=== PATIENT | female | born 1970 | race Two or more races ===

== ENCOUNTER 2020-04-29 17:38 | Outpatient (REF) | payer MEDICAID, SELFPAY ==
--- NOTE | 2020-04-29 | XR_ITS ---
EXAMINATION: XR SHOULDER, RIGHT CLINICAL INFORMATION: Right shoulder pain COMPARISON: 05/28/2014 TECHNIQUE: Three views of the right shoulder. FINDINGS: Normal alignment. No fracture. There is a small calcification at the deltoid insertion onto the acromion may be degenerative or related to a previous injury. This is a new finding although it is of doubtful clinical significance. Minimal acromioclavicular osteoarthritis. The glenohumeral joint is unremarkable. IMPRESSION: Minimal acromioclavicular osteoarthritis.
[2020-04-29 18:52] LABS: Creatinine Urine 225.12 mg/dL; Microalbum/Creatinine Ratio Ur 8.8 ug/mg cr
[2020-04-29 18:54] LABS: Anion Gap 12 (12-20); Blood Urea Nitrogen 17 mg/dL (9-16); Calcium 9.2 mg/dL (8.4-10.2); Carbon Dioxide 29 mmol/L (22-29); Chloride 104 mmol/L (96-108); Cholesterol 200 mg/dL; Estimated Glomerular Filt Rate > 60; Glucose Random 144 mg/dL (60-115); HDL Cholesterol 35 mg/dL; LDL Cholesterol Calculated 124 mg/dl; Sodium 141 mmol/L (135-145); Triglycerides 206 mg/dL
[2020-04-30 06:17] LABS: Estimated Average Glucose 166 mg/dL; Hemoglobin A1c % 7.4 %
== END 2020-04-29 17:39 | disposition home or self-care (01) ==
LOC: HO.LAB 17:38
PROVIDERS: PCP Internal Medicine; Visit Provider Internal Medicine
DX: E11.9 Type 2 diabetes mellitus without complications (principal)
CPT/HCPCS: 73030; 80048; 80061; 82043; 83036

== ENCOUNTER 2020-09-25 14:00 | Outpatient (RCR) | payer MEDICAID, SELFPAY ==
--- NOTE | 2020-09-10 16:16 | MHC.PT.EP ---
[facility] [place] Office [place] [facility] [place] Office [address] [phone] F: [phone] F: [phone] F: [phone] F: [phone] Physical Therapy Plan of Care Date of Evaluation: 09/10/20 Date of Surgery: Diagnosis: Rt SHOULDER AND Rt ELBOW PAIN Assessment: 50 YO FEMALE REF TO PT W RIGHT SHOULDER, ELBOW, AND NECK PAIN- SHE RESIDES ALONE AND HER SON ASSISTS HER W SHOPPING AND DRIVING DEPENDING ON HER PAIN LEVEL. SHE IS RIGHT HAND DOMINANT-AND WAS INDEP W ADLs PRIOR TO ONSET OF SXS. OBJECTIVE FINDINGS INCLUDE: DECR AROM Rt SH/ELBOW/ CERVICAL AREAS, DECR POST RC/ SCAP STRENGTH, (+)RADIC SXS INTO RIGHT FINGERS, AND SIGNIF TTP RIGHT UPPER TRAP/ ANT GH, FOREARM WAD. SHE HAS (+) Rt SH IMPINGEMENT SIGN AND (+) Rt LAT EPICONDYLITIS SXS AND SOME SXS W CERV ORIGIN/ POSTURAL SYNDROME. FUNCTIONALLY, Pt'S PAIN IMPACTS HER OVERALL ADLs/ SLEEP, AND FUNCTIONAL MOBILITY JOHNNIE. SHE WOULD BENEFIT FROM PT TO ADDRESS PAIN MGMT, SELF SX TECHN, DEV A HEP TO ADDRESS ROM AND STRENGTH, AND POSTURE[facility]. Frequency and Duration: The patient will be seen 2x WK x 4 WKS Short Term Goals: Pt'S PAIN DECR TO 2-3/10 AND Rt HAND RADIC SXS DECR BY 75% IN 2 WKS Pt DEMON INDEP SELF CORRECT POSTURE AND PROPER BODY MECH W 3:3 SIM ADLs IN 2 WKS [place] Goals: Pt INDEP W HEP FOR STRENGTH AND ROM IN 4 WKS Pt RESUME REG ADLs EVIDENT W IMPROVED SPADI SCORE BY 20 POINTS ( AT [id number]) IN 4 WKS Treatment Plan: Modalities to reduce pain, spasms and effusion. Manual therapy to restore motion and function. Therapeutic exercise to improve strength and flexibility. Neuromuscular re-education for posture and balance. Therapeutic activities to return to functional activities of daily living. Electronically signed by: Jeane Harp, PT Please sign and return to therapist. Thank you for your referral.
== END 2020-10-09 16:14 | disposition other institution (70) ==
LOC: HO.PTCHIC 14:00
PROVIDERS: PCP Internal Medicine; Visit Provider Internal Medicine
DX: M25.511 Pain in right shoulder (principal)
CPT/HCPCS: 97014; 97035; 97110; 97140; 97162; 97530

== ENCOUNTER 2021-05-14 14:24 | Outpatient (REF) | payer MEDICAID, SELFPAY ==
--- NOTE | ~2021-05-14 | MM_ITS ---
EXAMINATION: MM SCREENING DIGITAL BREAST TOMOSYNTHESIS, BILATERAL CLINICAL INFORMATION: Screening. Asymptomatic. The lifetime risk of breast cancer based on the Tyrer-Cuzick Model is 6%. COMPARISON: Mammography: 03/17/2018, 08/05/2016, 01/01/2015 TECHNIQUE: Digital breast tomosynthesis is performed in both the craniocaudal and mediolateral oblique views along with computer-aided detection (CAD). Synthesized 2D images are generated from the tomosynthesis. Additional right MLO view is provided. FINDINGS: The breasts are almost entirely fatty (ACR BI-RADS breast composition Category a). Background stromal and some fibroglandular densities are stable. There is no developing density. No abnormal calcifications. The axilla and skin contours are unremarkable. MM/MM tomosynthesis screening BI IMPRESSION: No mammographic evidence of malignancy. ASSESSMENT: BI-RADS 1: Negative RECOMMENDATION: Routine annual mammography screening. This patient's information was entered into a reminder system with a target due date for their next mammogram.
== END 2021-05-14 14:25 | disposition home or self-care (01) ==
LOC: HO.MAMMO 14:24
PROVIDERS: Visit Provider Internal Medicine
DX: Z12.31 Encounter for screening mammogram for malignant neoplasm of breast (principal)
CPT/HCPCS: 77063; 77067

== ENCOUNTER 2021-07-22 10:05 | Outpatient (REF) | payer MEDICAID, SELFPAY ==
--- NOTE | 2021-07-22 | EMG_ITS ---
This is a 51-year-old woman with a 6 month history of bilateral upper extremity pain and numbness in the hands with the left being worse than the right. PHYSICAL EXAMINATION: On examination, she is alert, oriented with normal intellectual functions. She has mild weakness in the abductor pollicis brevis. No Tinel or Phalen sign. IMPRESSION: Carpal tunnel syndrome. Nerve conduction EMG study: Moderately severe carpal tunnel syndrome bilaterally, slightly worse on the left. Normal EMG of the left C5-T1 innervated muscles. MD DWAINE Galvin/KARRIE / [id number]
== END 2021-07-22 10:06 | disposition home or self-care (01) ==
LOC: HO.NEURO 10:05
PROVIDERS: Visit Provider Internal Medicine
DX: G56.01 Carpal tunnel syndrome, right upper limb (principal); M79.621 Pain in right upper arm
CPT/HCPCS: 95885; 95913

== ENCOUNTER 2021-10-06 12:38 | Outpatient (RCR) | payer MEDICAID, SELFPAY ==
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
--- NOTE | 2021-10-14 14:55 | MHC.OT.DC ---
[address] [phone] F: [phone] Occupational Therapy Discharge Note Provider: Dr. Mccollum Diagnosis: B/L CARPAL TUNNEL SYNDROME Date of Evaluation: 10/06/21 Date of Discharge: 10/14/21 Treatments to Date: 1 Cancellations to Date: 5 No Shows to Date: 2 Discharge Status: Visit Non-compliance Discharge Summary: Pt was seen for initial eval on 10/06/21 for B/L carpal tunnel syndrome, also found to have multiple trigger fingers. She was educated on basic conservative treatment on carpal tunnel syndrome with nighttime orthosis wear and given figure eight orthosis for trigger digits and advised to limit active flexion of hands. She has since missed 2 visits, so we will d/c per [facility] no-show policy. Electronically Signed By: Amanda Montana OT/s Reviewed/agree with student documentation: Yes Therapist: Paige Rodríguez, OTR/L, CHT Please Sign and return to therapist, thank you for your referral.
== END 2021-10-14 14:56 | disposition home or self-care (01) ==
LOC: HO.OT 12:38
PROVIDERS: PCP Internal Medicine; Visit Provider Internal Medicine
DX: G56.01 Carpal tunnel syndrome, right upper limb (principal)
CPT/HCPCS: 97110; 97166; 97760

== ENCOUNTER 2022-02-20 15:37 | Emergency (ER) | payer MEDICAID, SELFPAY ==
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
[2022-02-20 16:03] VITALS: BP 157/92; PULSE 77; RESP 18; TEMP 36.7; O2SAT 96; BMI 33.6
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
== END 2022-02-20 21:19 | disposition home or self-care (01) ==
PROVIDERS: Emergency Provider Emergency Medicine; PCP Internal Medicine
DX: S13.4XXA Sprain of ligaments of cervical spine, initial encounter (principal); S06.0X0A Concussion without loss of consciousness, initial encounter; V43.52XA Car driver injured in collision with other type car in traffic accident, initial encounter; M79.602 Pain in left arm; M25.512 Pain in left shoulder; Y93.89 Activity, other specified; Y92.410 Unspecified street and highway as the place of occurrence of the external cause; Y99.9 Unspecified external cause status
CPT/HCPCS: 73030; 73060; 73070; 99282; 99283

== ENCOUNTER 2022-08-25 15:42 | Outpatient (REF) | payer MEDICAID, SELFPAY ==
--- NOTE | ~2022-08-25 | XR_ITS ---
EXAMINATION: XR knee RT 3V CLINICAL INFORMATION: Posttraumatic dislocation of the knee. COMPARISON: Knee radiographs 07/03/2014 TECHNIQUE: 3 views of the knee FINDINGS: No acute fracture or dislocation. Mild tricompartmental degenerative changes with minimal degenerative spurring and borderline loss of medial compartment joint space. No joint effusion. Soft tissues are unremarkable. XR/XR knee RT 3V IMPRESSION: * No acute osseous abnormality. Mild degenerative changes of the knee.
== END 2022-08-25 15:43 | disposition home or self-care (01) ==
LOC: HO.XRAY 15:42
PROVIDERS: PCP Internal Medicine; Visit Provider Internal Medicine
DX: S83.104A Unspecified dislocation of right knee, initial encounter (principal); X58.XXXA Exposure to other specified factors, initial encounter; Y93.9 Activity, unspecified; Y92.9 Unspecified place or not applicable; Y99.9 Unspecified external cause status
CPT/HCPCS: 73562

== ENCOUNTER 2023-01-06 18:41 | Outpatient (REF) | payer MEDICAID, SELFPAY ==
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
== END 2023-01-06 18:42 | disposition home or self-care (01) ==
LOC: HO.MRI 18:41
PROVIDERS: Visit Provider Internal Medicine
DX: M17.11 Unilateral primary osteoarthritis, right knee (principal)
CPT/HCPCS: 73721

== ENCOUNTER 2023-08-05 18:10 | Outpatient (REF) | payer MEDICAID, SELFPAY | END 2023-08-05 18:11 | disposition home or self-care (01) | LOC: HO.HHCLNP 18:10 | PROVIDERS: Visit Provider Student in an Organized Health Care Education/Training Program | DX: R30.9 Painful micturition, unspecified (principal) | CPT/HCPCS: 87086; 87147 ==

== ENCOUNTER 2024-01-10 12:42 | Outpatient (REF) | payer MEDICAID, SELFPAY ==
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
== END 2024-01-10 12:43 | disposition home or self-care (01) ==
LOC: HO.US 12:42
PROVIDERS: PCP Internal Medicine; Visit Provider Internal Medicine
DX: R31.21 Asymptomatic microscopic hematuria (principal)
CPT/HCPCS: 76775

== ENCOUNTER 2024-04-12 17:07 | Outpatient (REF) | payer MEDICAID, SELFPAY ==
[2024-04-13 12:14] LABS: CT PCR NOT DETECTED (Not Detect.); NG PCR NOT DETECTED (Not Detect.)
[2024-04-13 14:22] LABS: Bacterial Vaginosis PCR NEGATIVE (Negative); Candida Group PCR DETECTED (Not Detect); Candida glab krusei PCR NOT DETECTED (Not Detect); Trichomonas vaginalis PCR NOT DETECTED (Not Detect)
== END 2024-04-12 17:08 | disposition home or self-care (01) ==
LOC: HO.HHCLNP 17:07
PROVIDERS: Visit Provider Emergency Medicine
DX: R21 Rash and other nonspecific skin eruption (principal); R39.9 Unspecified symptoms and signs involving the genitourinary system
CPT/HCPCS: 0352U; 87086; 87147; 87255; 87491; 87591

== ENCOUNTER 2024-05-23 14:12 | Outpatient (AMB) | payer MEDICAID, SELFPAY ==
--- NOTE | 2024-05-23 14:16 | MHC.OFFVIS ---
Intake Visit Reasons: nephrolithiasis Intake Note: New Patient presents for initial visit for nephrolithiasis Urology Medications: none Blood Thinner:none Recreation Therapy Teacher Required: No Accompanied by: Unknown Allergies acetaminophen [Excedrin Migraine] Allergy (Unknown, Verified 05/23/24 14:48) Hives aspirin [ASPIRIN] Allergy (Unknown, Verified 05/23/24 14:48) HIVES caffeine [Excedrin Migraine] Allergy (Unknown, Verified 05/23/24 14:48) Hives ibuprofen [IBUPROFEN] Allergy (Unknown, Verified 05/23/24 14:48) HIVES penicillin V Allergy (Unknown, Verified 05/23/24 14:48) Hives Penicillins [PENICILLINS] Allergy (Unknown, Verified 05/23/24 14:48) HIVES Motrin Allergy (Unknown, Uncoded 05/23/24 14:48) Hives Medication List - Last Reconciled 05/23/24 by REHANA Pinto acetaminophen 1,000 mg PO Q6H PRN albuterol sulfate 90 mcg/actuation (Ventolin HFA) 2 puffs inhalation Q4-6H PRN blood sugar diagnostic (FreeStyle Lite Strips) As directed clotrimazole 1% appl topical BID cyclobenzaprine 10 mg PO BEDTIME PRN ergocalciferol (vitamin D2) 1,250 mcg PO QWEEK fluticasone propionate 220 mcg/actuation (Flovent HFA) 2 puffs inhalation BID gabapentin 100 mg PO BID hydrochlorothiazide 25 mg PO QAM ketoconazole 2% 1 appl topical BID lancets (TRUEplus Lancets) As directed lidocaine 5% 1 patch topical DAILY PRN losartan 50 mg PO QAM metformin 850 mg PO triamcinolone acetonide 0.1% appl topical BID HPI Comments Details: En is a very pleasant 54-year-old female patient of Dr. Mccollum. She has a past medical history of diabetes, chronic thoracic spine pain, arthritis, thoracic radiculopathy, insomnia, obesity, migraines, lumbar radiculopathy, mixed hyperlipidemia, hypertension, GERD, chronic low-back pain, and asthma. She presents to the office today as a new patient for nephrolithiasis. In discussion with the patient today she reports having had recent renal ultrasound that noted nephrolithiasis at which time urology referral was made for further assessment evaluation. These results reviewed with the patient today. 01/15 renal ultrasound notes bilateral mild caliectasis. Right kidney with no renal calculi. Left kidney with a few tiny echogenic foci that can represent tiny nonobstructive calculi, vascular calcifications, and or artifact. On exam today no CVA tenderness noted bilaterally. Patient with pain upon palpation of low-back/lumbar. She reports pain worsens with movement and relieves with rest. She otherwise denies any bothersome urinary issues. She denies urinary urgency, urinary frequency, incontinence, nocturia, hematuria, dysuria, foul smelling urine, changes to urinary stream, flank pain, fever, and or chills. She is happy with her current voiding parameters. In office urinalysis results reviewed with the patient today. We discussed at length potential causes of potential noted nephrolithiasis. Discussed, educated, and stressed the importance of adequate hydration in relation to nephrolithiasis as well as overall health and well-being. We discussed importance of managing diabetes for overall health and well-being. She otherwise offers no other issues or concerns at this time. [facility] Medical History Chronic thoracic spine pain Injury of meniscus of right knee Genital sore Arthritis of right knee Vulvovaginitis due to yeast Closed traumatic dislocation of right knee joint Type 2 diabetes mellitus without complication Primary osteoarthritis of right shoulder Thoracic radiculopathy Tension type headache Right flank pain Primary insomnia Precordial pain Right arm pain Pain in female pelvis Paresthesia of hand Obesity Migraine Microscopic hematuria Lumbar radiculopathy Joint pain Mixed hyperlipidemia HTN (hypertension) Glucose intolerance (impaired glucose tolerance) Tinea pedis GERD (gastroesophageal reflux disease) Disorder of joint of spine Foot callus Chronic low back pain Chest pain Candidal intertrigo Callus of heel Asthma Arthritis Anxiety about health Adverse effect of simvastatin Otitis media Family History Mother Diabetes HTN (hypertension) Review of Systems Const All systems reviewed & are unremarkable except as noted in HPI and below Physical Exam Const General: cooperative, healthy appearing, comfortable, no acute distress, well developed, alert and awake Nutritional Appearance: overweight Orientation/consciousness: patient oriented x3 Limitations: no limitations HEENT Head: Yes normal to inspection, Yes normocephalic and Yes atraumatic Ears: hearing grossly normal bilaterally Eyes General: appearance normal, both eyes and all related structures Neck Neck: Yes normal visual inspection and Yes trachea midline Chest Chest palpation & inspection: normal inspection of the chest Resp Effort & Inspection: normal respiratory effort and able to speak in complete sentences Cardio Rate: regular rate GI Inspection: Yes normal to inspection General: Yes no CVA tenderness Back/Spine/Pelvis Back: no CVA tenderness Skin General skin exam: no rashes or lesions noted Neuro General: patient oriented x3 Extrem General: Yes normal to inspection Psych Appearance: grossly normal and well kempt Mental Status: mental status grossly normal Speech and movement: Normal speech and movement present and Clear speech present Affect: normal affect Attitude: cooperative Thought process: Normal thought process present Thought content: Normal thought content present Insight: Fair insight present (Psych) Judgement: Fair judgement present (Psych) Results AMB Urinalysis, Automated UA Leukoctes 0 Khanh/uL Last Edit by [employer] on 05/23/24 14:43 UA Nitrite Last Edit by [employer] on 05/23/24 14:43 UA Urobilinogen 0.2 mg/dL Last Edit by [employer] on 05/23/24 14:43 UA Protein 30 mg/dL Last Edit by [employer] on 05/23/24 14:43 UA pH 5.5 Last Edit by [employer] on 05/23/24 14:43 UA Blood 25 Ming/uL Last Edit by [employer] on 05/23/24 14:43 UA Specific [place] 1.030 Last Edit by [employer] on 05/23/24 14:43 UA Ketone Last Edit by [employer] on 05/23/24 14:43 UA Bilirubin 0 mg/dL Last Edit by [employer] on 05/23/24 14:43 UA Glucose 0 mg/dL Last Edit by [employer] on 05/23/24 14:43 Results Reviewed Results Reviewed: Laboratory Last Values Urine pH (Auto) 5.5 05/23/24 14:41 Specific [place] (Auto) 1.030 05/23/24 14:41 Urine Protein (Auto) 30 mg/dL 05/23/24 14:41 Glucose (UA)(Auto) 0 mg/dL 05/23/24 14:41 Urine Blood (Auto) 25 Ming/uL 05/23/24 14:41 Urine Bilirubin (Auto) 0 mg/dL 05/23/24 14:41 Urine Urobilinogen (Auto) 0.2 mg/dL 05/23/24 14:41 Leukocyte Esterase (Auto) 0 Khanh/uL 05/23/24 14:41 Date of Service: 01/10/24 EXAMINATION: US RETROPERITONEAL LIMITED (RENAL ONLY) FINDINGS: RIGHT KIDNEY: 12.7 x 5.2 x 5.7 cm (SAG x AP x TRV). Mild caliectasis. No renal calculi. Renal cortical thickness is normal. Limited visualization. LEFT KIDNEY: 13.2 x 6.0 x 5.1 cm (SAG x AP x TRV). Mild caliectasis. Renal cortical thickness is normal. A few tiny echogenic foci may represent tiny nonobstructive calculi, vascular calcifications or artifact. Limited visualization. IMPRESSION: 1. Mild bilateral caliectasis. 2. A few tiny echogenic foci in the left kidney may represent tiny nonobstructive calculi, vascular calcifications or artifact. Assessment & Plan Assessment & Plan (1) Nephrolithiasis: Code(s): N20.0 - Calculus of kidney Category: Medical Plan In office urinalysis results reviewed with the patient today; as noted above. Recent renal imaging results reviewed with the patient today; as noted above. Patient currently denies any bothersome urinary issues. She reports be happy with current voiding parameters. Discussed at length potential causes of nephrolithiasis. Will obtain renal ultrasound for further assessment evaluation. Follow-up in 3 months with imaging to be completed prior; or sooner with any issues, concerns, and or questions. Orders: Orders AMB Urinalysis Automated Today Z13.9 - Encounter for screening, unspecified US renal BI Today N20.0 - Calculus of kidney Patient Instructions: The patient had an opportunity to ask questions regarding the treatment plan. All questions were answered. Physical exam, labs, and imaging were discussed and reviewed in detail. As well as risks, benefits, and discussion of treatment choices. No major barriers to understanding were identified. The patient expressed understanding and agreement with the above treatment plan. The patient was made aware they should contact our office by phone for worsening of their current condition, the appearance of new symptoms, or with any questions or concerns. Compliance is encouraged with any medications and follow up testing that is ordered. It is a privilege to be allowed the opportunity to participate in? your urological care.? Again, if you have any questions or concerns If you have any questions or concerns please do not hesitate to contact me. The office is [phone]. This note is constructed using voice recognition software. While every effort has been made to ensure accuracy solar thermal technician errors may have been included. Yours sincerely, REHANA Pinto Coding Level of Care Code New Pt Level 3 (46932) Diagnoses Nephrolithiasis N20.0
== END 2024-05-23 14:48 | disposition home or self-care (01) ==
PROVIDERS: PCP Internal Medicine; Visit Provider Nurse Practitioner Family
DX: N20.0 Calculus of kidney (principal); Z13.9 Encounter for screening, unspecified
CPT/HCPCS: 99203

== ENCOUNTER → 2024-05-23 14:13 | Outpatient (BNVA) | payer MEDICAID, SELFPAY | PROVIDERS: PCP Internal Medicine; Visit Provider Nurse Practitioner Family | DX: N20.0 Calculus of kidney (principal) | CPT/HCPCS: 81003; 99212 ==

== ENCOUNTER 2024-06-18 13:16 | Outpatient (REF) | payer MEDICAID, SELFPAY | END 2024-06-18 13:17 | disposition home or self-care (01) | LOC: HO.US 13:16 | PROVIDERS: PCP Internal Medicine; Visit Provider Nurse Practitioner Family | DX: N20.0 Calculus of kidney (principal) | CPT/HCPCS: 76775 ==

== ENCOUNTER 2024-07-17 13:33 | Outpatient (AMB) | payer MEDICAID, SELFPAY ==
--- NOTE | 2024-07-17 13:33 | A.OFFVIS_ITS ---
Intake Visit Reasons: 2m/US(set) Intake Note: Patient presents today for tele visit follow up on: nephrolithiasis and ultrasound results Imaging Completed: 06/18/24 Urology Medications: none Blood Thinner:none Assistant Terminal Manager Required: No Allergies acetaminophen [Excedrin Migraine] Allergy (Unknown, Verified 07/19/24 23:01) Hives aspirin [ASPIRIN] Allergy (Unknown, Verified 07/19/24 23:01) HIVES caffeine [Excedrin Migraine] Allergy (Unknown, Verified 07/19/24 23:01) Hives ibuprofen [IBUPROFEN] Allergy (Unknown, Verified 07/19/24 23:01) HIVES penicillin V Allergy (Unknown, Verified 07/19/24 23:01) Hives Penicillins [PENICILLINS] Allergy (Unknown, Verified 07/19/24 23:01) HIVES Motrin Allergy (Unknown, Uncoded 07/19/24 23:01) Hives Medication List - Last Reconciled 07/17/24 by REHANA Pinto acetaminophen 1,000 mg PO Q6H PRN albuterol sulfate 90 mcg/actuation (Ventolin HFA) 2 puffs inhalation Q4-6H PRN blood sugar diagnostic (FreeStyle Lite Strips) As directed clotrimazole 1% appl topical BID cyclobenzaprine 10 mg PO BEDTIME PRN ergocalciferol (vitamin D2) 1,250 mcg PO QWEEK fluticasone propionate 220 mcg/actuation (Flovent HFA) 2 puffs inhalation BID hydrochlorothiazide 25 mg PO QAM ketoconazole 2% 1 appl topical BID lancets (TRUEplus Lancets) As directed lidocaine 5% 1 patch topical DAILY PRN losartan 50 mg PO QAM metformin 850 mg PO pyridoxine (vitamin B6) 100 mg PO DAILY 90 days triamcinolone acetonide 0.1% appl topical BID HPI Comments Details: En is a very pleasant 54-year-old female patient of Dr. Mccollum. She has a past medical history of diabetes, chronic thoracic spine pain, arthritis, thoracic radiculopathy, insomnia, obesity, migraines, lumbar radiculopathy, mixed hyperlipidemia, hypertension, GERD, chronic low-back pain, and asthma. She is being followed up on today via telehealth for her nephrolithiasis. In discussion with the patient today she reports to be doing and feeling well. Recent renal imaging results remain pending however unofficial report reviewed with the patient today. Multiple nonobstructing small left renal calculi. Right kidney with no hydronephrosis or renal calculi noted. She does report noting back pain however believes this is related to her chronic thoracic spine pain she experiences due to bulging discs. She denies any bothersome lower urinary tract symptoms. She also reports noting pain worsens with movement and relieved with rest. She denies urinary urgency, urinary frequency, incontinence, nocturia, hematuria, dysuria, foul smelling urine, changes to urinary stream, flank pain, fever, and or chills. She is happy with her current voiding parameters. We discussed at length potential causes of nephrolithiasis and further workup of nephrolithiasis. Discussed, educated, and stressed the importance of adequate hydration in relation to nephrolithiasis as well as overall health and well-being. We discussed importance of managing diabetes for overall health and well-being. She otherwise offers no other issues or concerns at this time. [facility] Medical History Chronic thoracic spine pain Injury of meniscus of right knee Genital sore Arthritis of right knee Vulvovaginitis due to yeast Closed traumatic dislocation of right knee joint Type 2 diabetes mellitus without complication Primary osteoarthritis of right shoulder Thoracic radiculopathy Tension type headache Right flank pain Primary insomnia Precordial pain Right arm pain Pain in female pelvis Paresthesia of hand Obesity Migraine Microscopic hematuria Lumbar radiculopathy Joint pain Mixed hyperlipidemia HTN (hypertension) Glucose intolerance (impaired glucose tolerance) Tinea pedis GERD (gastroesophageal reflux disease) Disorder of joint of spine Foot callus Chronic low back pain Chest pain Candidal intertrigo Callus of heel Asthma Arthritis Anxiety about health Adverse effect of simvastatin Otitis media Family History Mother Diabetes HTN (hypertension) Review of Systems Const All systems reviewed & are unremarkable except as noted in HPI and below Physical Exam Const General: cooperative Orientation/consciousness: patient oriented x3 Resp Effort & Inspection: able to speak in complete sentences Neuro General: patient oriented x3 Psych Attitude: cooperative Thought process: Normal thought process present Thought content: Normal thought content present Insight: Fair insight present (Psych) Judgement: Fair judgement present (Psych) Telehealth Telehealth Telehealth Platform: [employer] Location of provider rendering services: practice address Location of patient: address on file Patient Identification confirmed using: Name, : Yes Telehealth method: voice only Patient verbally consented to treatment: Yes Patient verbally consented to billing insurance company: Yes Patient informed of any privacy concerns related to visit: Yes Minutes spent on Phone/Video with Pt.: 20 Assessment & Plan Assessment & Plan (1) Nephrolithiasis: Code(s): N20.0 - Calculus of kidney Category: Medical Plan Recent renal imaging results reviewed with the patient today; as noted above. Will continue with surveillance monitoring of nephrolithiasis at this time We discussed obtaining [facility] for further assessment evaluation. Discussed, educated, and stressed the importance of adequate hydration relation to nephrolithiasis as well as overall health and well-being. Start vitamin B6 as discussed and prescribed. Discussed adding 1 oz of lemon juice to water daily Patient currently denies any bothersome urinary issues. She reports be happy with current voiding parameters. Follow-up in 3 months with [facility] to be completed prior; or sooner with any issues, concerns, and or questions. Orders: Orders URORISK 07/17/24 N20.0 - Calculus of kidney Medications: New pyridoxine (vitamin B6) 100 mg PO DAILY 90 days 90 tabs 1RF Patient Instructions: The patient had an opportunity to ask questions regarding the treatment plan. All questions were answered. Physical exam, labs, and imaging were discussed and reviewed in detail. As well as risks, benefits, and discussion of treatment choices. No major barriers to understanding were identified. The patient expressed understanding and agreement with the above treatment plan. The patient was made aware they should contact our office by phone for worsening of their current condition, the appearance of new symptoms, or with any questions or concerns. Compliance is encouraged with any medications and follow up testing that is ordered. It is a privilege to be allowed the opportunity to participate in? your urological care.? Again, if you have any questions or concerns If you have any questions or concerns please do not hesitate to contact me. The office is [phone]. This note is constructed using voice recognition software. While every effort has been made to ensure accuracy quality control projectionist errors may have been included. Yours sincerely, REHANA Pinto Coding Level of Care Code Tele Est Pt Level 4 (90168) Diagnoses Nephrolithiasis N20.0
== END 2024-07-17 14:17 | disposition home or self-care (01) ==
LOC: HO.HUSH 13:33
PROVIDERS: PCP Internal Medicine; Visit Provider Nurse Practitioner Family
DX: N20.0 Calculus of kidney (principal)
CPT/HCPCS: 99214

== ENCOUNTER → 2024-07-17 13:33 | Outpatient (BNVA) | payer MEDICAID, SELFPAY | PROVIDERS: PCP Internal Medicine; Visit Provider Nurse Practitioner Family ==

== ENCOUNTER 2025-04-23 13:33 | Outpatient (REF) | payer MEDICAID, SELFPAY ==
--- OUTSIDE RECORDS SUMMARY | 2025-04-23 14:50 | XMS_ITS | Encounter Summary ---
Author Organization [employer] Address [address] [place] [address] Care Team Providers Care Radio Mechanic Helper Name Role Phone Raysa Mccollum MD Primary Care Provider + Encounter Details Date Type Department Care Team ([facility] Contact Info) Description 01/08/2023 Orders Only [facility] MEDICINE [address] [place] [address] Nay Westbrook MD [address] [place] [address] Recurrent candidiasis of vagina (Primary Dx) Social History Tobacco Use Types Packs/Day Years Used Date Smoking Tobacco: Never Passive Smoke Exposure: Never Smokeless Tobacco: Never Alcohol Use Standard Drinks/Week Comments Never 0 (1 standard drink = 0.6 oz pur e alcohol) Depression Answer Date Recorded Patient Health Questionnaire-9 Score 0 08/24/2022 Depression Answer Date Recorded Patient Health Questionnaire-2 Score 0 08/24/2022 Comments Unknown Sex and Gender Information Value Date Recorded Sex Assigned at Female 05/24/2022 10:16 AM EDT Legal Sex Female 10:16 AM EDT Gender Identity Female 05/24/2022 10:16 AM EDT Sexual Orientation Straight 05/24/2022 10 :16 AM EDT COVID-19 Exposure Response Date Recorded In the last 10 days, have yo u been in contact with someone who was confirmed or suspected to have Coronavirus/COVID-19? No / Unsure 01/05/2023 9:35 AM EDT documented as of this encounter Plan of Treatment Upcoming Encounters Date Type Department Care Team ([facility] Contact Info) Description 07/04/2025 1:00 PM EST Office Visit [facility] OPTOMETRY [address] [place] [address] Raul, Mercedes, OD [address] [place] [address] documented as of this encounter Visit Diagnoses Diagnosis Recurrent candidiasis of vagina- Primary documented in this encounter Additional Health Concerns Assessment Noted Time PHQ-9 Depression Total Score: 0 08/24/19 23 11:35 AM EST documented as of this encounter Care Teams Radio Mechanic Helper Relationship Specialty Start Date End Date Raysa Mccollum MD [address] [place] [address] PCP - General Family Medicine 03/10/17 documented as of this encounter
--- OUTSIDE RECORDS SUMMARY | 2025-04-23 14:50 | XMS_ITS | Encounter Summary ---
Author Organization [employer] Address [address] [place] [address] Care Team Providers Care Acds Block 1 Operator Name Role Phone Raysa Mccollum MD Primary Care Provider + Reason for Visit * Reason Onset Date Comments Appointment Request 12/03/2024 Encounter Details Date Type Department Care Team ([facility] st Contact Info) Description 12/03/2024 Telephone [facility] MEDICINE [address] [place], [place] [phone] Raysa Mccollum MD [address] [place], [place] [phone] Appointment Request Social History Tobacco Use Types Packs/Day Years Used Date Smoking Tobacco: Former Cigarettes Passive Smoke Exposure: Never Smokeless Tobacco: Never Alcohol Use Standard Drinks/Week Comments Never 0 (1 standard drink = 0.6 oz pur e alcohol) Depression Answer Date Recorded Patient Health Questionnaire-9 Score 1 09/15/2023 Patient Health Questionnaire-9 Score 1 09/15/2023 Last PHQ-9: Questionnaire Data Not on file 0 09/15/2023 Housing Stability Answer Date Recorded What is your housing situation today? I have pilar rowland 09/05/[address] you li ve. Do you have problems with any of the following? None of the above 09/05/2023 Food Insecurity Answer Date Recorded Within the past 12 months, y ou worried that your food would run out before you got money to buy more: Never True 09/05/2023 Within the past 12 months,th e food you bought just didn't last and you didn't have enough money to get more: Never True 06/2024 Transportation Answer Date Recorded In the past 12 months, has l ack of transportation kept you from medical appts, meetings, work or from getting things needed for daily living? Yes, it has kept me from non-medical meetings, work, or getting things that I need 09/05/2023 Utilities Answer Date Recorded In the past 12 months, has t he electric, gas, oil or water company threatened to shut off services in your home? No 09/05/2023 Depression Answer Date Recorded Patient Health Questionnaire-2 Score 0 09/15/2023 Internet Access Answer Date Recorded Internet Access Q1 No 09/04/2024 Internet Access Q2 I cannot afford it 09/04/2024 Comments Unknown Sex and Gender Information Value Date Recorded Sex Assigned at Female 05/24/2022 10:16 AM EDT Legal Sex Female 10:16 AM EDT Gender Identity Female 05/24/2022 10:16 AM EDT Sexual Orientation Straight 05/24/2022 10 :16 AM EDT documented as of this encounter Miscellaneous Notes * Telephone Encounter - Grace Castellanos - 12/03/2024 10:45 AM EDT Tc from pt requesting an appointment sooner. Pt states hasn't seen pcp in two months and can't waituntil February. documented in this encounter Plan of Treatment Upcoming Encounters Date Type Department Care Team (Late st Contact Info) Description 07/04/2025 1:00 PM EST Office Visit [facility] OPTOMETRY [address] [place] [address] Mercedes Carter, OD [address] [place] [address] documented as of this encounter Visit Diagnoses Not on filedocumented in this encounter Additional Health Concerns Assessment Noted Time PHQ-9 Depression Total Score: 1 09/15/19 24 10:37 AM EST documented as of this encounter Care Teams Acds Block 1 Operator Relationship Specialty Start Date End Date Raysa Mccollum MD [address] [place] [address] PCP - General Family Medicine 03/10/17 documented as of this encounter
--- OUTSIDE RECORDS SUMMARY | 2025-04-23 14:50 | XMS_ITS | Encounter Summary ---
Author Organization [employer] Address [address] [facility] [address] [place] [address] Care Team Providers Care Woolen Suiting Shrinker Name Role Phone Raysa Mccollum MD Primary Care Provider + Reason for Visit * Reason Comments Med Refill Encounter Details Date Type Department Care Team ([facility] st Contact Info) Description 08/01/2023 Refill [facility] [address] [place], [place] [phone] Raysa Mccollum MD [address] [place], [place] [phone] Moderate persistent asthma without complication Social History Tobacco Use Types Packs/Day Years Used Date Smoking Tobacco: Never Passive Smoke Exposure: Never Smokeless Tobacco: Never Alcohol Use Standard Drinks/Week Comments Never 0 (1 standard drink = 0.6 oz pur e alcohol) Depression Answer Date Recorded Patient Health Questionnaire-9 Score 0 08/24/2022 Housing Stability Answer Date Recorded What is your housing situation today? I have pilar [place]land 05/10/[address] you li ve. Do you have problems with any of the following? None of the above 05/10/2023 Food Insecurity Answer Date Recorded Within the past 12 months, y ou worried that your food would run out before you got money to buy more: Never True 05/10/2023 Within the past 12 months,th e food you bought just didn't last and you didn't have enough money to get more: Never True Transportation Answer Date Recorded In the past 12 months, has l ack of transportation kept you from medical appts, meetings, work or from getting things needed for daily living? No 05/10/2023 Utilities Answer Date Recorded In the past 12 months, has t he electric, gas, oil or water company threatened to shut off services in your home? No 05/10/2023 Depression Answer Date Recorded Patient Health Questionnaire-2 [...] Description 07/04/2025 1:00 PM EST Office Visit [facility] [address] [place], [place] [phone] Mercedes Carter, OD [address] [place] [address] documented as of this encounter Visit Diagnoses Diagnosis Moderate persistent asthma without complication documented in this encounter Additional Health Concerns Assessment Noted Time PHQ-9 Depression Total Score: 0 08/24/19 23 11:35 AM EST documented as of this encounter Care Teams Woolen Suiting Shrinker Relationship Specialty Start Date End Date Raysa Mccollum MD [address] [place] [address] PCP - General Family Medicine 03/10/17 documented as of this encounter
--- OUTSIDE RECORDS SUMMARY | 2025-04-23 14:50 | XMS_ITS | Encounter Summary ---
Author Organization [employer] Address [address] [facility] [address] [place] [address] Care Team Providers Care Architect Marine Name Role Phone Raysa Mccollum MD Primary Care Provider + Reason for Visit * Reason Comments Med Refill Encounter Details Date Type Department Care Team (Late Contact Info) Description 01/05/2023 Refill [facility] [address] [place] [address] [facility] [address] [place] [phone] Primary hypertension Social History Tobacco Use Types Packs/Day Years [...] Encounters Date Type Department Care Team (Late Contact Info) Description 07/04/2025 1:00 PM EST Office Visit [facility] [address] [place], [place] [phone] Raul, Mercedes, OD [address] [place] [address] documented as of this encounter Visit Diagnoses Diagnosis Primary hypertension Unspecified essential hypertension documented in this encounter Additional Health Concerns Assessment Noted Time PHQ-9 Depression Total Score: 0 08/24/19 23 11:35 AM EST documented as of this encounter Care Teams Architect Marine Relationship Specialty Start Date End Date Raysa Mccollum MD [address] [place] [address] PCP - General Family Medicine 03/10/17 documented as of this encounter
--- OUTSIDE RECORDS SUMMARY | 2025-04-23 14:51 | XMS_ITS | Encounter Summary ---
Author Organization [employer] Address [address] [facility] [address] [place] [address] Care Team Providers Care Collections Technician Name Role Phone Raysa Mccollum MD Primary Care Provider + Reason for Visit * Reason Onset Date Comments pain medication 07/10/2024 Encounter Details Date Type Department Care Team (Late st Contact Info) Description 07/10/2024 Telephone [facility] [address] [place], [place] [phone] George Arzola DDS [address] [place], [place] [phone] pain medication Social History Tobacco Use Types Packs/Day Years [...] Recorded Patient Health Questionnaire-2 Score 0 09/15/2023 Comments Unknown Sex and Gender Information Value Date Recorded Sex Assigned at Female 05/24/2022 10:16 AM EDT Legal Sex Female 10:16 AM EDT Gender Identity Female 05/24/2022 10:16 AM EDT Sexual Orientation Straight 05/24/2022 10 :16 AM EDT documented as of this encounter Miscellaneous Notes * Telephone Encounter - Nicki Sheikh - 07/10/2024 2:51 PM EST Message for Dr. Arzola Patient states that antibiotic was sent to pharmacy but nothing for pain. She is looking for pain meds to be sent as well DR documented in this encounter Plan of Treatment Upcoming Encounters Date Type Department Care Team (Late st Contact Info) Description 07/04/2025 1:00 PM EST Office Visit [facility] [address] [place] [address] Raul, Mercedes, OD [address] [place] [address] documented as of this encounter Visit Diagnoses Not on filedocumented in this encounter Additional Health Concerns Assessment Noted Time PHQ-9 Depression Total Score: 1 09/15/19 24 10:37 AM EST documented as of this encounter Care Teams Collections Technician Relationship Specialty Start Date End Date Raysa Mccollum MD [address] [place] [address] PCP - General Family Medicine 03/10/17 documented as of this encounter
--- OUTSIDE RECORDS SUMMARY | 2025-04-23 14:51 | XMS_ITS | Clinical Summary ---
Author Organization [employer] Address [address] [facility] [address] [place] [address] Care Team Providers Care Helicopter Pilot Name Role Phone Raysa Mccollum MD Primary Care Provider + Allergies Active Allergy Reactions Criticality Noted Date Comments Aspirin 07/16/2010 Atorvastatin Palpitations Low 06/07/2019 Clindamycin 09/13/2019 Fluticasone 12/29/2011 Other reaction(s): lumps in nose Ibuprofen Hives 07/16/2010 Penicillin V 07/16/2010 Other reaction(s): unspecified Statins High 07/03/2022 [id number] REDUCTASE INHIBITORS Reactions: HIVES/Skin Rash, Trouble Breathing per previous EHR Sulfamethoxazole High 02/02/2021 Other reaction(s): Chest pain, Hives / Skin Rash Trimethoprim High 02/02/2021 Medications Blood Glucose Monitoring Suppl (FreeStyle glucose monitoring) kitIndications:Ty pe 2 diabetes mellitus without complication, without long-term current use of insulin (HCC) Use to test blood sugar twice daily 1 each 3 Active Zinc Oxide 22 % creamIndications: Vulvovaginitis due to yeast Use bid to affected area 113 g 3 Active Desitin 13 % cream APPLY TO THE AFFECTED AREA(S) TWICE DAILY 3 Active omeprazole (PriLOSEC) [address] capsule TAKE 1 CAPSULE BY MOUTH ONCE DAILY 3 Active albuterol (Ventolin HFA) 108 (90 Base) MCG/ACT inhalerIndication s:Mild asthma without complication, unspecified whether persistent INHALE 2 PUFFS BY MOUTH EVERY 4 TO 6 HOURS NEEDED 18 g 2 4 Active bacitracin-polymy ross b (Polysporin) ointment Apply topically 2 times daily. Apply to affected area daily 30 g 4 Active TRUEplus Lancets 33G miscIndications:T ype 2 diabetes mellitus without complication, without long-term current use of insulin ([facility]) TEST BLOOD SUGAR TWICE DAILY 100 each 11 4 Active traZODone (Desyrel) 50 MG tablet TAKE 1 TABLET BY MOUTH EVERY DAY AT BEDTIME 30 tablet 3 4 Active Mometasone Furoate (Asmanex HFA) 200 MCG/ACT aerosol Inhale 2 puffs 2 times daily. 13 g 11 5 Active gabapentin (Neurontin) 100 MG capsule Take 1 capsule (100 mg) by mouth 2 times daily. 180 capsule 1 5 Active triamcinolone (Kenalog) 0.1 % creamIndications: Dermatitis APPLY A THIN LAYER TO AFFECTED AREA(S) TWICE DAILY DIRECTED, USE SPARINGLY 60 g 1 5 Active Acetaminophen Extra Strength 500 MG tabletIndications :Lumbar radiculopathy TAKE 2 TABLETS BY MOUTH EVERY 6 HOURS NEEDED FOR PAIN 120 tablet 3 5 Active hydroCHLOROthiazi de (HYDRODiuril) 25 MG tabletIndications :Primary hypertension TAKE 1 TABLET BY MOUTH EVERY DAY IN THE MORNING 90 tablet 3 5 Active losartan (Cozaar) 50 MG tablet Take 1 tablet (50 mg) by mouth Once per day. 90 tablet 3 5 12/01/19 26 Active cyclobenzaprine (Flexeril) 10 MG tabletIndications :Lumbar radiculopathy TAKE 1 TABLET BY MOUTH AT BEDTIME 30 tablet 5 Active glucose blood (FREESTYLE LITE) test stripIndications: Type 2 diabetes mellitus without complication, without long-term current use of insulin ([facility]) TEST BLOOD SUGAR TWICE DAILY 100 strip 5 5 Active ergocalciferol (Vitamin D2) 1.25 MG (79622 UT) capsuleIndication s:Arthritis,Vitam in D deficiency TAKE 1 CAPSULE BY MOUTH ONCE A WEEK 12 capsule 5 Active lidocaine (Lidoderm) 5 % patch APPLY 1 PATCH TOPICALLY TO SKIN, LEAVE ON FOR 12 HOURS AND OFF FOR 12 HOURS DIRECTED 30 patch 5 5 Active metFORMIN (Glucophage) 500 MG tabletIndications :Type 2 diabetes mellitus without complication, without long-term current use of insulin (HCC) Take 2 tablets (1,000 mg) by mouth with breakfast and with evening meal. 360 tablet 3 5 03/12/20 26 Active SITagliptin (Januvia) 50 MG tablet Take 1 tablet (50 mg) by mouth Once per day. 90 tablet 1 5 03/12/20 26 Active Diclofenac Sodium 1 % gel Apply 1 inch topically if needed in the morning and at bedtime (pain). 60 g 5 04/11/20 25 Active Problems Problem Noted Date Diagnosed Date Cervical radiculopathy 03/12/2025 Assessment & Plan (03/12/2025 1:33 PM EDT): Has radiated pain to upper trunk and back, referred to PT, see above Cervical paraspinal muscle spasm 09/18/2024 Assessment & Plan (03/12/2025 1:33 PM EDT): She has underlying DDD of the cervical spine and did not go to PT ordered earlier this year, agreed to be referred again and follow through. Discussed with pt stretching exercises for C-spine. Advised to come to acupuncture clinic. Take Tylenol with Flexeril x 1 week, then prn. Use lidocaine patch as needed or diclofenac gel after stretching exercises FU in 3 months Assessment & Plan (09/18/2024 4:22 PM EST): She has underlying DDD of the cervical spine and has not been compliant with PT referral for few months now, will do referral again. Discussed with pt stretching exercises for C-spine. Advised to come to acupuncture clinic. Take Tylenol with Flexeril x 1 week, then prn. FU in 6 weeks. Chronic pain of both shoulders 09/18/2024 Assessment & Plan (11/30/2024 12:32 PM EDT): Significantly improving status post PT Continue Tylenol as needed Assessment & Plan (09/18/2024 4:22 PM EST): Most likely related to DDD of C-spine, will fu after PT. Medication management as above. Non-recurrent acute serous otitis media of both ears 09/18/2024 Assessment & Plan (09/18/2024 6:19 PM EST): Most likely status post influenza. Fluticasone nasal inhaler Advised to have steam showers and nasal saline as needed, reconsult as needed fever or worsening of symptoms Open fracture of tooth 07/10/2024 Non-restorable tooth 07/10/2024 Kidney stones 02/08/2024 Assessment & Plan (02/08/2024 8:39 AM EDT): Renal US last month showed small kidney stones and signs that previous ones passing thru tract, this may be worsening her LBP Will refer to urology for further FU Advised to start PT for LBP Sore throat 02/01/2024 Anxiety 11/17/2023 Assessment & Plan (11/17/2023 11:56 AM EDT): Start trazodone 50mg qhs and fu w/ me next month Neck sprain 09/15/2023 Assessment & Plan (02/07/2024 8:16 PM EDT): She has known DJD spine, could have herniated disc I told her to restart PT exercises as she did it in the past Advised to com e to acupuncture clinic Take tylenol prn or flexeril Assessment & Plan (11/17/2023 11:55 AM EDT): She has underlying DJD of the spin, advised to come to acupuncture Refer to PT Continue flexeril and tylenol Vitamin D deficiency 09/15/2023 Assessment & Plan (09/15/2023 11:13 AM EST): Complete vit d supplementation x 3 m and check labs in 12/2023 Meniscal injury, right, subsequent encounter Assessment & Plan (03/10/2023 11:32 AM EDT): See above Chronic thoracic spine pain 03/10/2023 Assessment & Plan (03/10/2023 11:33 AM EDT): Referred to PT Use flexeril + tylenol x 1 week, then prn Encounter for screening colonoscopy 01/06/2023 Assessment & Plan (01/06/2023 11:32 AM EDT): Refer to [facility] for screening colonscopy Arthritis of right knee 12/09/2022 Assessment & Plan (05/19/2023 1:42 PM EDT): Pt missed manpreet with ortho and PT Copy of referral given to Pt, she may need a steroid injection Assessment & Plan (03/10/2023 11:32 AM EDT): Pt was referred to orthopaedics, missed appt Pt counseled to reschedule appt w/ ortho Encouraged ambulation w/ cane to prevent falls Assessment & Plan (12/09/2022 1:36 PM EDT): r/o meniscal injury order MRI of the right knee and refer to orthopedics if needed continue tylenol and lidocaine patch PRN Vulvovaginitis due to yeast 10/25/2022 Assessment & Plan (10/25/2022 3:50 PM EDT): secondary to uncontrolled DM. Use fluconazole x1 dose + Clotrimazole cream + zinc oxide ointment on affected area Counseled tight control of DM. Adverse effect of simvastatin 07/03/2022 Anxiety about health 07/03/2022 Arthritis 07/03/2022 Candidal intertrigo 07/03/2022 Chest pain 07/03/2022 Chronic low back pain 07/03/2022 Foot callus 07/03/2022 Tinea pedis 07/03/2022 Pain in female pelvis 07/03/2022 Paresthesia of hand 07/03/2022 Precordial pain 07/03/2022 Primary insomnia 07/03/2022 Right flank pain 07/03/2022 Primary osteoarthritis of right shoulder 022 Assessment & Plan (10/25/2022 3:53 PM EDT): Chronic. We discussed about treatment options including steroid injection, PT and acupuncture. She wants to start with PT and will come to acupuncture when possible. Tylenol PRN and FU with me in 3 months Type 2 diabetes mellitus without complication Assessment & Plan (03/12/2025 1:34 PM EDT): It is uncontrolled, we discussed importance that medications daily and the need to increase metformin which she has refused in the past. I will increase metformin to 1000 mg twice daily and add Januvia 50 mg and follow-up in 3 to 4 months. Counseled re more frequent low calorie/carb meals. Check fgstk 2x daily Encouraged physical activity as tolerated. Order labs prior to next visit and FU in 3 months. Foot examination is normal, no diabetic neuropathy Assessment & Plan (11/30/2024 12:32 PM EDT): It seems to be better controlled, I discussed with patient importance of taking metformin twice daily, always with meals to avoid hypoglycemia. She seems to be tolerating medication well Continue metformin 500 mg twice daily I will refer to dietitian Follow-up with me in 2 months Assessment & Plan (09/18/2024 4:20 PM EST): Uncontrolled, non-compliant with Metformin. Advised to take Metformin 1000 mg daily as opposed to prn. FU in 6 weeks. Counseled re more frequent low calorie/carb meals. Encouraged physical activity as tolerated. Assessment & Plan (02/07/2024 8:18 PM EDT): Still uncontrolled, we discussed re importance of meds and diet compliance. She can take Metformin 1000mg with evening meal so she doesn't skip the AM dose if she needs to leave the house during the day. She's advised that she may need addtl meds or have metformin dose increased. Counseled re more frequent low calorie/carb meals. Check fgstk 2x daily Encouraged physical activity as tolerated. FU in 6-8w Assessment & Plan (01/02/2024 2:00 PM EDT): Uncontrolled. Patient is not complaint with diet or meds. I had a lengthy discussion with her re importance of tght BS control in order to prevent complications from DM. We also discussed re A1c numbers. She adamantly declines to take Metformin as rx, I will lower it to 500 mg and fu with her in 1m. I told her she needs to rs appt with [facility] program as she had initially declined. She also missed several appts with fashion merchandiser in the past. Assessment & Plan (11/17/2023 12:46 PM EDT): Most likely uncontrolled Stressed importance of low calorie intake, cut off sweetened drinks and favor water Increase Metformin to 1000mg BID, continue Jardiance Counseled re more frequent low calorie/carb meals. Check fgstk daily Encouraged physical activity as tolerated. FU in 4 months. Advised to reschedule [facility] appointment Assessment & Plan (09/15/2023 11:13 AM EST): Uncontrolled, non compliant w/ meds and probably meals Restart jardiance daily and metformin BID Counseled re more frequent low calorie/carb meals. Will refer to [facility] pharmacy program and start on pill boxes Encouraged physical activity as tolerated. FU in 3 wks. Assessment & Plan (05/19/2023 1:40 PM EDT): Uncontrolled, Pt noncompliant w/ medication, it is likely we need to optimize her Rx treatment I will cont Metformin 750 mg BID + Jardiance Will refer to [facility] clinic and med boxes and fu with me in 2 m I gave her info about DM control Refer to fashion merchandiser She declined flu IZ today Assessment & Plan (03/10/2023 11:31 AM EDT): Uncontrolled Inc metformin to 750mg BID, cont jardiance Counseled re more frequent low calorie/carb meals. Encouraged physical activity as tolerated. FU in 4 weeks Assessment & Plan (12/09/2022 1:38 PM EDT): Most likely still uncontrolled. discussed with pt regarding importance of taking medications regularly as opposed to PRN Continue Metformin 500mg BID + Jardiance 25 mg daily and fu with me in 6 weeks. Counseled re more frequent low calorie/carb meals. Encouraged physical activity as tolerated. Assessment & Plan (10/25/2022 3:51 PM EDT): Uncontrolled. A1C is 10.4. We discussed PO medications including injectables. She wants to avoid injectables at this time. She wants to start jaradiance 25 mg Counseled re more frequent low calorie/carb meals. Check fgstk daily Encouraged physical activity as tolerated. Continue metformin and FU with me in 4 weeks. Assessment & Plan (08/24/2022 12:07 PM EST): Uncontrolled. Pt agreed to start med boxes to simplify medication regimen and improve med compliance. Continue with metformin same dose and fu with me next month and confirm A1c. Lumbar radiculopathy 09/08/2018 Assessment & Plan (11/30/2024 12:31 PM EDT): Recommended to restart stretching exercises and take Tylenol Advised to come to acupuncture clinic, use lidocaine patch as needed, she will call back if she wants to be referred to PT Assessment & Plan (09/18/2024 4:19 PM EST): Advised to take Tylenol and Flexeril QHS, can take Tylenol up to 500 mg 3 times per day. Advised to come to acupuncture. Will refer to PT once she completes PT for C-spine. Assessment & Plan (02/07/2024 8:15 PM EDT): SP PT, doing better Re consult prn. She's concerned re sciatic pain, I told her that she could have sxs on/off Assessment & Plan (01/02/2024 1:53 PM EDT): Refer to TT again, patient is aware that she should show to PT within 30d of appt. Continue flexeril + Tylenol Lidocaine patch. Assessment & Plan (11/17/2023 11:53 AM EDT): Awaiting for PT Continue flexeril + Tylenol PRN Advised to come to acupuncture clinic Assessment & Plan (03/10/2023 11:33 AM EDT): See above Thoracic radiculopathy 04/23/2018 Asymptomatic microscopic hematuria 04/10/2018 Pain in thoracic spine 01/11/2018 Tension-type headache 06/13/2017 Assessment & Plan (09/18/2024 4:24 PM EST): Most likely related to DDD of C-spine, fu after PT is completed. I will obtain last CT scan of the C-spine and head, and fu at next visit. Acute frontal sinusitis 04/22/2017 Chronic frontal sinusitis 04/22/2017 Hypertension 05/02/2013 Assessment & Plan (03/12/2025 1:37 PM EDT): Uncontrolled today, reportedly controlled at home Reminded to take losartan and HCTZ Follow-up with me in 3 months Assessment & Plan (11/30/2024 12:32 PM EDT): Reminded to take losartan and HCTZ Follow-up with me in 2 or 3 months Assessment & Plan (09/18/2024 4:18 PM EST): Uncontrolled, non-compliant with medications. Advised to take Losartan 50 mg + HCTZ 25 mg daily, check BP at home three times per week and fu with me in 6 weeks. Will order blood work. Assessment & Plan (02/07/2024 8:15 PM EDT): Uncontrolled Restart Losartan 50mg, take along hydrochlorothiazide and fu with me in 6-8w Assessment & Plan (01/02/2024 1:53 PM EDT): Better controlled. Continue losartan 100mg + hydrochlorothiazide 25mg, fu in 3mo Counseled re low salt diet/increase moderate physical activity. Check home BP BIW and prn CP/NAIDU/UNDERWOOD Non smoking patient. Assessment & Plan (11/17/2023 11:55 AM EDT): Uncontrolled. Increase losartan to 100 mg, continue HCTZ 25 mg Counseled re low salt diet/increase moderate physical activity. Check home BP BIW and prn CP/NAIDU/UNDERWOOD Non smoking patient. Fu 4-6 wks w/ labs Advised to reschedule [facility] appointment Assessment & Plan (09/15/2023 11:14 AM EST): Uncontrolled, non complaint w/ losartan Restart losartan 50mg /day and continue HCTZ same dose Assessment & Plan (08/07/2023 8:31 AM EST): States at her home her BP is usually in 140s -states not took yet BP meds this morning ,states not taking constantly her DM meds -encouraged pt today to make sure to takes her daily meds as px -f w PCP in 1 week has apt already scheduled to monitor chronic conditions Assessment & Plan (05/19/2023 1:41 PM EDT): Uncontrolled. Unclear if its related to Rx noncompliance Pt agreed to be referred to [facility] clinic and med boxes No change in Rx Counseled re low salt diet/increase moderate physical activity. Check home BP BIW and prn CP/NAIDU/UNDERWOOD Non smoking patient. Assessment & Plan (03/10/2023 11:31 AM EDT): Uncontrolled today, pt did not take BP meds Cont losartan/HCTZ FU in 4 weeks -reminded her about complicance w/ medications Assessment & Plan (12/09/2022 1:38 PM EDT): Uncontrolled. Discussed with pt regarding importance of taking medications regularly as opposed to PRN, I advised to take it after meals Continue HCTZ 25 mg + losartan 50 mg and fu with me in 6 weeks with labs Counseled re low salt diet/increase moderate physical activity. Check home BP BIW and prn CP/NAIDU/UNDERWOOD Non smoking patient. Assessment & Plan (10/25/2022 3:52 PM EDT): Uncontrolled. Increase Losartan to 50 mg and continue HCTZ same dose and FU with me in 4 weeks. Counseled re low salt diet/increase moderate physical activity. Check home BP BIW and prn CP/NAIDU/UNDERWOOD Non smoking patient. Mixed hyperlipidemia 01/19/2012 Obesity 01/19/2012 Assessment & Plan (03/12/2025 1:36 PM EDT): BMI is 33, we discussed about weight reduction and decrease calorie intake Discussed re weight reduction options including exercise, life style modifications, diet. Recommended to decrease soda and sugary beverage consumption, increase protein intake with meals (at least 1 portion of protein with each meal) to assist with satiety, increase dietary fiber Recommended at least 150 min/week of moderate intensity exercise. Declined a referral to dietitian Will optimize metformin also for diabetes management, she does not want to be on injectables/GLP's for weight reduction. Will continue to follow-up along Asthma 12/29/2011 Assessment & Plan (11/30/2024 12:31 PM EDT): Doing well on albuterol as needed Reconsult as needed Assessment & Plan (11/17/2023 11:54 AM EDT): No recent exacerbations Continue asmanex daily and pro air PRN Gastroesophageal reflux disease 12/29/2011 Migraine 12/29/2011 Resolved Problems Problem Noted Date Diagnosed Date Resolved Date Other osteoarthritis of spine 09/15/2023 11/17/2023 Assessment & Plan (09/15/2023 11:13 AM EST): C region, pt has cervical sprain, will refer to PT Take tylenol + Flexeril BID x 1 wk then PRN Recommenced to come in walk in acupuncture clinic Recommended wt reduction Fu in 3 m UTI (urinary tract infection) 08/07/2023 03/12/2025 Assessment & Plan (08/07/2023 8:30 AM EST): -last chem 12/2022 wnl Pt w UTI symptoms,reports some back discomfort but reproduced w palpation and neg CVA -will tx as UTI but if no improvement in next 2 to 3 days advised to RTC to reevaluation,as well will tx for candidiasis -Urine dipstick: glucose >1000, ,ketones neg, blood mod , protein 30, nitrates neg, LE trace ,tested edgar + 12/2022 in sures[facility]ab -UA w reflex cx -px macrobid x 7 days -fluconazole x1 and clotrimazole BID x 7 days -pyriudum prn x 2 days -tylenol prn -alarm signs and symptoms discussed w pt Genital sore 01/05/2023 11/17/2023 Assessment & Plan (01/06/2023 11:31 AM EDT): Will rule out infectious etiologies today with lab work (HSV< RPR< HIV, SureSwab) If all negative can start steroid cream for suspected lichen planus, and have derm followup Closed traumatic dislocation of right knee joint 08/24/2022 11/17/2023 Assessment & Plan (10/25/2022 3:52 PM EDT): has underlying OA refer to PT and continue Tylenol FU in 3 months Assessment & Plan (08/24/2022 12:05 PM EST): Seems to have meniscal compromise. Recommended ice twice a day on affected area Take tylenol 1000mg BID x 2 weeks then PRN Partial weight bearing, use cane for ambulation Order Xray and FU with me in 4 weeks Pain in right arm 07/03/2022 11/17/2023 Assessment & Plan (08/24/2022 12:06 PM EST): Pt with known rotator cuff and cervical tendinosis and cervical radiculopathy take tylenol as above and use Flexeril at bedtime. Disorder of joint of spine 04/23/2018 0 11/17/2023 Elevated blood pressure reading 01/11/2018 05/19/2023 Joint pain 05/08/2015 11/17/2023 Impaired glucose tolerance 05/02/2013 0 11/17/2023 Encounters Date Type Department Care Team Description 03/12/2025 11:45 AM EDT Office Visit [facility] [address] [place] [address] Raysa Mccollum MD Type 2 diabetes mellitus without complication, without long-term current use of insulin ([facility]) (Primary Dx); Cervical radiculopathy; Cervical paraspinal muscle spasm; Class 1 obesity due to excess calories with serious comorbidity and body mass index (BMI) of 33.0 to 33.9 in adult; Dietary counseling; Exercise counseling; Screening mammogram for breast cancer; Primary hypertension 03/12/[address] [facility] [address] [place] [address] Raysa Mccollum MD MAMMO ORDER FAXED 03/12/2025 Travel 03/11/[address] [address] Raysa Mccollum MD chart prep 03/04/[address] [address] Raysa Mccollum MD Nurse Triage 03/04/[address] [address] Raysa Mccollum MD No Show 02/28/[address] [address] Raysa Mccollum MD chart prep 02/20/2025 Patient Outreach [address] [address] Raysa Mccollum MD Pre-visit Planning ([facility] screening completed on 09/04/2024) 02/04/[address] [address] Raysa Mccollum MD Nurse Triage 01/30/[address] [address] Raysa Mccollum MD Med Refill; Medication Question 01/30/[address] [facility] [address] [place], [place] [id number] Raysa Mccollum MD Lumbar radiculopathy; Type 2 diabetes mellitus without complication, without long-term current use of insulin ([facility]); Arthritis; Vitamin D deficiency from Last 3 Months Immunizations Immunization Administration Dates Next Due Influenza, Split (incl. purified surface antigen ) 04/11/2013,03/21/2012 Moderna Covid-19 Vaccine 12+ 01/27/2021,01/03/20 21 Pneumococcal Polysaccharide PPSV23 04/11/2013 TD (adult), 2 Lf tetanus tox oid, preservative free, adsorbed 07/25/2008 Tdap 04/11/2013 Family History Medical History Relation Name Comments Diabetes Mother Hypertension Mother Relation Name Status Comments Mother Social History Tobacco Use Types Packs/Day Years Used Date Smoking Tobacco: Former Cigarettes Passive Smoke Exposure: Past Smokeless Tobacco: Never Alcohol Use Standard Drinks/Week Comments Never 0 (1 standard drink = 0.6 oz pur e alcohol) Depression Answer Date Recorded Patient Health Questionnaire-9 Score 0 03/12/2025 Patient Health Questionnaire-9 Score 0 03/12/2025 Last PHQ-9: Questionnaire Data Not on file 0 03/12/2025 Housing Stability Answer Date Recorded What is [...] Date Recorded Patient Health Questionnaire-2 Score 0 03/12/2025 Internet Access Answer Date Recorded Internet Access Q1 No 09/04/2024 Internet Access Q2 I cannot afford it 09/04/2024 Comments Unknown Sex and Gender Information Value Date Recorded Sex Assigned at Female 05/24/2022 10:16 AM EDT Legal Sex Female 10:16 AM EDT Gender Identity Female 05/24/2022 10:16 AM EDT Sexual Orientation Straight 05/24/2022 10 :16 AM EDT Last Filed Vital Signs Vital Sign Reading Time Taken Comments Blood Pressure 150/90 03/12/2025 12:22 PM EDT Pulse 81 03/12/2025 12:02 PM EDT Temperature 36.7 C (98 F) 03/12/2025 12:02 PM EDT Respiratory Rate 20 03/12/2025 12:02 PM EDT Oxygen Saturation 97% 03/12/2025 12:02 PM EDT Inhaled Oxygen Concentration - - Weight 86.8 kg (191 lb 6.4 oz) 03/12/2025 12:02 PM EDT Height 160 cm (5' 3 ) 03/12/2025 12:02 PM EDT Body Mass Index 33.9 03/12/2025 12:02 PM EDT Plan of Treatment Upcoming Encounters Date Type Department Care Team (Late st Contact Info) Description 07/04/2025 1:00 PM EST Office Visit [facility] [address] [place] [address] Raul, Mercedes, OD [address] [place] [address] Health Maintenance Due Date Last Done Comments CT Colonography 1968 Dental Oral Exam 1968 Dental Prophylaxis 1968 FIT DNA/Cologuard 1968 FIT 1968 FOBT 1968 Sigmoidoscopy 1968 Hepatitis C Screening 01/11/1986 Hepatitis B Vaccines (1 of 3 - 19+ 3-dose series) 01/11/1987 Pneumococcal Vaccine: 50+ Years (2 of 2 - PCV) 04/11/2014 04/11/2013 Dental X-Ray: Bitewings 02/24/2017 02/24/2016, 08/02 Zoster Vaccines (1 of 2) 01/11/2018 DTaP/Tdap/Td Vaccines (2 - Td or Tdap) 04/11/2023 04/11/2013, 07/25/2008 Mammogram 05/14/2023 05/14/2021, 12/23, 03/20/2018 Diabetes: Urine Protein Screening 01/06/2024 01/05/2023, 04/29/2020, 04/23/2020 Lipid Panel 01/06/2024 01/05/2023, 03/2021, 04/23/2020 COVID-19 Vaccine ( season) 2025 01/27/2021, 01/02/2021 Influenza Vaccine (#1) 2025 04/11/2013, 2011 Diabetes: Hemoglobin A1C 06/12/2025 025, 09/18/2024, 01/02/2024, Additional history exists SDOH Screening 09/04/2025 09/04/2024 Pap Smear 01/05/2026 01/05/2023, 12/23, 01/05/2023 Alcohol/Substance Use Screening 03/12/2026 03/12/2025 Depression Screening 03/12/2026 03/12/2025, 03/12/20 Diabetes: Foot Exam 03/12/2026 03/12/2025, 03/12/2025, 03/12/2025, Additional history exists Disability Screening 03/12/2026 03/12/2025 Tobacco Screening 03/12/2026 03/12/2025 Eye Exam 06/14/2026 06/14/2024, 05/26, 06/14/2024, Additional history exists Dental X-Ray: Full Mouth 07/11/2027 07/10/2024, 03/2013 Cervical Cancer Screening 01/06/2028 HPV/Cotest 01/06/2028 01/05/2023, 12/23, 10/27/2016 Colonoscopy 10/11/2033 10/12/2023 Colorectal Cancer Screening 10/11/2033 RSV Patients and Patients Aged 60 years or older (1 - 1-dose 75+ series) 01/11/2043 HIV Screening Completed 01/05/2023 HIB Vaccines Aged Out No longer eligi ble based on patient's age to complete this topic HPV Vaccines Aged Out No longer eligi ble based on patient's age to complete this topic Hepatitis A Vaccines Aged Out No long er eligible based on patient's age to complete this topic IPV Vaccines Aged Out No longer eligi ble based on patient's age to complete this topic Meningococcal B Vaccine Aged Out No l onger eligible based on patient's age to complete this topic Meningococcal Vaccine Aged Out No tonya rosario eligible based on patient's age to complete this topic RSV under 20 months Aged Out No longe r eligible based on patient's age to complete this topic Rotavirus Vaccines Aged Out No longer eligible based on patient's age to complete this topic Procedures Procedure Name Priority Date/Time Associated Diagnosis Comments POCT GLYCATED HEMOGLOBIN, TOTAL Routine 03/12/2025 12:04 PM EDT Type 2 diabetes mellitus without complication, without long-term current use of insulin ([facility]) POCT GLUCOSE Routine 03/12/2025 12:03 PM EDT Type 2 diabetes mellitus without complication, without long-term current use of insulin ([facility]) PANORAMIC RADIOGRAPHIC IMAGE Routine 07/10/2024 1:00 PM EST HM COLONOSCOPY Routine 10/12/2023 THINPREP IMAGING PAP AND HPV MRNA E6/E7 WITH REFLEX TO HPV 16,18/45 Routine 01/05/2023 10:32 AM EDT Encounter for screening for cervical cancer ALBUMIN, RANDOM URINE W/CREATININE Routine 01/05/2023 10:29 AM EDT LIPID PANEL, STANDARD Routine 01/05/2023 10:29 AM EDT HIV 1 RNA, QUANTITATIVE REAL TIME PCR Routine 01/05/2023 10:27 AM EDT Genital sore MAMMOGRAM GENERIC Routine 05/14/2021 2:0 0 PM EDT BITEWING - SINGLE RADIOGRAPHIC IMAGE Routine 02/24/2016 12:00 AM EDT from Last 3 Months or Most Recently Relevant to Health Maintenance Results * (ABNORMAL) POCT HGB A1C (03/12/2025 12:04 PM EDT) Hemoglobin A1C 8.9(A) 4.0 - 5.7 % QC Media Lot # [id number] Lot# Expiration Date [id number] Blood 03/12/2025 12:0 4 PM EDT Raysa Mccollum MD POINT OF CARE TEST ENTER /EDIT ORDERABLES Final Result * (ABNORMAL) POCT Glucose (03/12/2025 12:03 PM EDT) Pathologist [facility] Glucose Blood, POC 250(A) 60 - 200 mg/dL QC Media Lot # [id number] Lot# Expiration Date [id number] Blood Capillary blood specimen / Unknown 03/12/2025 12:03 PM EDT Raysa Mccollum MD POINT OF CARE TEST ENTER /EDIT ORDERABLES Final Result * Hm Colonoscopy (10/12/2023) Pathologist [facility] Colonoscopy Normal Normal [facility] 10/12/2023 Raysa Mccollum MD HEALTH MAINTENANCE Final Result [facility] * Thinprep TIS PAP And HPV mRNA E6/E7 With Reflex To HPV 16,18/45 (01/05/2023 10:32 AM EDT) Pathologist [facility] Clinical Information: 52YO F [employer] LMP: NONE GIVEN [employer] Prev. PAP: NONE GIVEN [employer] Prev. BX: NO [facility] [employer] SOURCE: None given [employer] Statement Of Adequacy: [employer] Comment: Satisfactory for evaluation. Endocervical/transformation zone component present. Interpretation/ Result: Negative for intraepithelial lesion or malignancy. [employer] COMMENT: This Pap test has been evaluated with computer assisted technology. [employer] Cytotechnologis t: [employer] Comment: SXA, CT(ASCP) CT screening location: [place] [id number] (Always Message) [employer] Comment: EXPLANATORY NOTE: The Pap is a screening test for cervical cancer. It is not a diagnostic test and is subject to false negative and false positive results. It is most reliable when a satisfactory sample, regularly obtained, is submitted with relevant clinical findings and history, and when the Pap result is evaluated along with historic and current clinical information. HPV nRNA E6/E7 Not Detected Not Detected [employer] Comment: Methodology: Sign Maintenance-Mediated Amplification This assay detects E6/E7 viral messenger RNA (mRNA) from 14 high-risk HPV types (16,18,31,33,35,39,45,51,52,56,58,59,66,68). Cervical sources are required for HPV testing. If a vaginal source from a patient who has had a total hysterectomy with removal of cervix was submitted, please contact the testing laboratory for alternative testing options. For additional information, please refer to http://education.[employer]/faq/YBC510j7 (This link if provided for information/ educational purposes only.) Genital 01/05/2023 10:3 2 AM EDT 01/06/2023 7:59 AM EDT Nay Westbrook MD LAB PATHOLOGY ORDERABLES Final Result [facility] [address], [place] [address] [employer] [address] [place] [address] * (ABNORMAL) Albumin, Random Urine W/Creatinine (01/05/2023 10:29 AM EDT) Creatinine, Random Urine 149 20 - 275 mg/dL [employer] Albumin, Urine 6.8 See Note: mg/dL [employer] Comment: Reference Range: Reference Range Not established Albumin/Creatinin e Ratio, Random Urine 46(H) <30 mcg/mg creat [employer] Comment: The ADA defines abnormalities in albumin excretion as follows: Albuminuria Category Result (mcg/mg creatinine) Normal to Mildly increased <30 Moderately increased 30-299 Severely increased > OR = 300 The ADA recommends that at least two of three specimens collected within a 3-6 month period be abnormal before considering a patient to be within a diagnostic category. 01/05/2023 10:2 9 AM EDT 01/05/2023 10:29 AM EDT [facility] - 01/05/2023 11:47 PM EDT FASTING:NO FASTING: NO Raysa Mccollum MD LAB URINE ORDERABLES Fin al Result [facility] [address], [place] [address] [facility] [address] [place] [address] * (ABNORMAL) Lipid Panel, Standard (01/05/2023 10:29 AM EDT) Cholesterol, Total 187 <200 mg/dL [facility] HDL Cholesterol 33(L) > OR = 50 mg/dL [facility] Triglycerides 171(H) <150 mg/dL [facility] LDL Cholesterol 125(H) mg/dL (calc) [facility] Comment: Reference range: <100 Desirable range <100 mg/dL for primary prevention; <70 mg/dL for patients with CHD or diabetic patients with > or = 2 CHD risk factors. LDL-C is now calculated using the Adam-Hina calculation, which is a validated novel method providing better accuracy than the Friedewald equation in the estimation of LDL-C. Adam MORRISON et al. ACE. 2013;310(19): 4767-9642 (http://education.[employer].AcEmpire/faq/HAJ867) Chol/HDLC Ratio 5.7(H) <5.0 (calc) [facility] Non-HDL Cholesterol 154(H) <130 mg/dL (calc) [employer] Comment: For patients with diabetes plus 1 major ASCVD risk factor, treating to a non-HDL-C goal of <100 mg/dL (LDL-C of <70 mg/dL) is considered a therapeutic option. 01/05/2023 10:2 9 AM EDT 01/05/2023 10:29 AM EDT Narrative [facility] - 01/05/2023 11:47 PM EDT FASTING:NO FASTING: NO Raysa Mccollum MD LAB BLOOD ORDERABLES Fin al Result Performing Organization Address [facility]/ZIP Co de Phone Number [address], [facility] [place] [address] [facility] [address] [place] [address] * HIV-1 RNA, Quantitative, Real-Time PCR (01/05/2023 10:27 AM EDT) Pathologist [facility] HIV 1 RNA, QN PCR NOT DETECTED NOT DETECTED copies/mL [facility] HIV 1 RNA, QN PCR NOT DETECTED NOT DETECTED Log copies/mL [facility] Comment: This test was performed using Real-Time Polymerase Chain Reaction. Reportable Range: 20 copies/mL to 10,000,000 copies/mL (1.30 log copies/mL to 7.00 log copies/mL). Blood Venous blood specimen / Unknown 01/05/2023 10:27 AM EDT 01/05/2023 10:28 AM EDT Narrative [facility] - 01/11/2023 11:04 PM EDT FASTING:NO FASTING: NO Nay Westbrook MD LAB BLOOD ORDERABLES Final Res ult Performing Organization Address City/[facility] Co de Phone Number [address], [facility] [place] [address] [facility] [address] [place] [address] * Mammography Report 1 (05/14/2021 2:00 PM EDT) Anatomical Region Laterality Modality Breast Bilateral Mammography 05/14/2021 2:00 PM EDT Narrative 05/15/2021 12:56 PM EDT Refer to the Notes tab for result details [facility] Procedure: Mammography Report 1 Procedure Note Provider, MD Lasha - 10/17/2022 Refer to the Notes tab for result details [facility] Procedure: Mammography Report 1 Raysa Mccollum MD IMG BI PROCEDURES Final Result from Last 3 Months or Most Recently Relevant to Health Maintenance Insurance C[facility] MEDICAID STAND ADULT Care Teams Helicopter Pilot Relationship Specialty Start Date End Date Raysa Mccollum MD [address] [place] [phone] PCP - General Family Medicine 03/10/17
--- OUTSIDE RECORDS SUMMARY | 2025-04-23 14:51 | XMS_ITS | Encounter Summary ---
Author Organization [employer] Address [address] [place] [address] Care Team Providers Care Legal Entity Controller Name Role Phone Raysa Mccollum MD Primary Care Provider + Encounter Details Date Type Department Care Team (Late st Contact Info) Description 04/14/2024 Orders Only [facility] [address] [place], [place] [phone] Guillermo Reyes MD [address] [place], [place] [phone] Social History Tobacco Use Types Packs/Day Years [...] Description 07/04/2025 1:00 PM EST Office Visit [facility] [address] [place] [address] Raul, Mercedes, OD [address] [place] [address] documented as of this encounter Visit Diagnoses Not on filedocumented in this encounter Additional Health Concerns Assessment Noted Time PHQ-9 Depression Total Score: 1 09/15/19 24 10:37 AM EST documented as of this encounter Care Teams Legal Entity Controller Relationship Specialty Start Date End Date Raysa Mccollum MD [address] [place] [address] PCP - General Family Medicine 03/10/17 documented as of this encounter
--- OUTSIDE RECORDS SUMMARY | 2025-04-23 14:51 | XMS_ITS | Encounter Summary ---
Author Organization [employer] Address [address] [facility] [address] [place] [address] Care Team Providers Care Arc Cutter Plasma Arc Name Role Phone Raysa Mccollum MD Primary Care Provider + Reason for Visit * Reason Onset Date Comments Med Refill 01/30/2025 Medication Question 01/30/2025 Encounter Details Date Type Department Care Team ([facility] st Contact Info) Description 01/30/2025 Telephone [facility] [address] [place], [place] [phone] Raysa Mccollum MD [address] [place], [place] [phone] Med Refill; Medication Question Social History Tobacco Use Types Packs/Day Years [...] encounter Miscellaneous Notes * Telephone Encounter - Sherrill Quintero LPN - 01/30/2025 2:02 PM EDT Medication pended to PCP for approval. * Telephone Encounter - Rut Segal - 01/30/2025 1:44 PM EDT Tc from pt requesting medication refill for glucose blood (FREESTYLE LITE) test strip. Looping Inspector advise pt script is currently pending. Pt requested a message to be sent due to not having any for tomorrow. documented in this encounter Plan of Treatment Upcoming Encounters Date Type Department Care Team (Late st Contact Info) Description 07/04/2025 1:00 PM EST Office Visit [facility] [address] [place] [address] Mercedes Carter, OD [address] [place] [address] documented as of this encounter Visit Diagnoses Not on filedocumented in this encounter Additional Health Concerns Assessment Noted Time PHQ-9 Depression Total Score: 1 09/15/19 24 10:37 AM EST documented as of this encounter Care Teams Arc Cutter Plasma Arc Relationship Specialty Start Date End Date Raysa Mccollum MD [address] [place] [phone] PCP - General Family Medicine 03/10/17 documented as of this encounter
--- OUTSIDE RECORDS SUMMARY | 2025-04-23 14:51 | XMS_ITS | Encounter Summary ---
Author Organization [employer] Address [address] [facility] [address] [place] [address] Care Team Providers Care Enrollment Specialist Name Role Phone Raysa Mccollum MD Primary Care Provider + Reason for Visit * Reason Onset Date Comments Nurse Triage 03/04/2025 Encounter Details Date Type Department Care Team (Late st Contact Info) Description 03/04/2025 Telephone [facility] [address] [place], [place] [phone] Raysa Mccollum MD [address] [place], [place] [phone] Nurse Triage Social History Tobacco Use Types Packs/Day Years [...] encounter Miscellaneous Notes * Telephone Encounter - Sofy Boyer RN - 03/04/2025 12:30 PM EDT Triage call Pt reports missing bus this morning as reason for missing scheduled OV. Pt reports having right earache for last 5 days. Pt denies drainage, swelling, but, has headache which goes to backof head on that side. Pt denies fever or drainage. Pt is advised to come to [facility] which is open till 8pm and Pt agrees. Pt will catch next bus to come to clinic. Pt agrees with disposition and insurance is verified as active. Protocol Used: Earache (Adult) Protocol-Based Disposition: See in Office or Video Visit Today or Tomorrow Positive Triage Questions: * All other earaches (Exceptions: Brief ear pain lasting < 1 hour, and earache occurring during air travel.) * Patient wants to be seen * All higher-acuity triage questions were negative Care Advice Discussed: * Reassurance and Education - Earache * Pain Medicines * Reasons To Call Back - Severe pain lasts over 2 hours after pain medicine - You become worse * Telephone Encounter - Jv Bagley - 03/04/2025 11:31 AM EDT Tc from pt requesting a call back regarding prior message. Contact pt at [phone] * Telephone Encounter - Juanito Burrell - 03/04/2025 11:01 AM EDT Tc from pt returning call regarding message prior. * Telephone Encounter - Joe Talamantes - 03/04/2025 10:24 AM EDT Symptom: Earache Outcome: Schedule an urgent appointment (within 1 hour) or talk to a nurse or provider soon Reason: Severe pain now documented in this encounter Plan of Treatment Upcoming Encounters Date Type Department Care Team (Late st Contact Info) Description 07/04/2025 1:00 PM EST Office Visit [facility] [address] [place] [address] Raul, Mercedes, OD [address] [place] [address] documented as of this encounter Visit Diagnoses Not on filedocumented in this encounter Additional Health Concerns Assessment Noted Time PHQ-9 Depression Total Score: 1 09/15/19 24 10:37 AM EST documented as of this encounter Care Teams Enrollment Specialist Relationship Specialty Start Date End Date Raysa Mccollum MD [address] [place] [address] PCP - General Family Medicine 03/10/17 documented as of this encounter
--- OUTSIDE RECORDS SUMMARY | 2025-04-23 14:51 | XMS_ITS | Encounter Summary ---
Author Organization [employer] Address [address] [place] [address] Care Team Providers Care Mechanical Design Engineer Products Name Role Phone Raysa Mccollum MD Primary Care Provider + Encounter Details Date Type Department Care Team (Late st Contact Info) Description 04/14/2024 Orders Only [facility] [address] [place], [place] [phone] Guillermo Reyes MD [address] [place], [place] [phone] Social History Tobacco Use Types Packs/Day Years [...] Description 07/04/2025 1:00 PM EST Office Visit [facility] [address] [place] [address] Raul, Mercedes, OD [address] [place] [address] documented as of this encounter Visit Diagnoses Not on filedocumented in this encounter Additional Health Concerns Assessment Noted Time PHQ-9 Depression Total Score: 1 09/15/19 24 10:37 AM EST documented as of this encounter Care Teams Mechanical Design Engineer Products Relationship Specialty Start Date End Date Raysa Mccollum MD [address] [place] [address] PCP - General Family Medicine 03/10/17 documented as of this encounter
--- OUTSIDE RECORDS SUMMARY | 2025-04-23 14:51 | XMS_ITS | Encounter Summary ---
Author Organization [employer] Address [address] [facility] [address] [place] [address] Care Team Providers Care Kosher Dietary Service Manager Name Role Phone Raysa Mccollum MD Primary Care Provider + Reason for Visit * Reason Comments Med Refill Encounter Details Date Type Department Care Team ([facility] st Contact Info) Description 07/26/2024 Refill [facility] [address] [place], [place] [phone] Raysa Mccollum MD [address] [place], [place] [phone] Dermatitis Social History Tobacco Use Types Packs/Day Years [...] Upcoming Encounters Date Type Department Care Team ([facility] st Contact Info) Description 07/04/2025 1:00 PM EST Office Visit [facility] [address] [place] [address] RaulMercedes alvarado, OD [address] [place] [address] documented as of this encounter Visit Diagnoses Diagnosis Dermatitis Contact dermatitis and other eczema, due to unspecified cause documented in this encounter Additional Health Concerns Assessment Noted Time PHQ-9 Depression Total Score: 1 09/15/19 24 10:37 AM EST documented as of this encounter Care Teams Kosher Dietary Service Manager Relationship Specialty Start Date End Date Raysa Mccollum MD [address] [place] [address] PCP - General Family Medicine 03/10/17 documented as of this encounter
== END 2025-04-23 13:34 | disposition home or self-care (01) ==
LOC: HO.MAMMO 13:33
PROVIDERS: PCP Internal Medicine; Visit Provider Internal Medicine
DX: Z12.31 Encounter for screening mammogram for malignant neoplasm of breast (principal)
CPT/HCPCS: 77063; 77067

== ENCOUNTER → 2025-04-23 14:15 | Outpatient (BNV) | payer MEDICAID, SELFPAY | PROVIDERS: PCP Internal Medicine; Visit Provider Internal Medicine | DX: Z12.31 Encounter for screening mammogram for malignant neoplasm of breast (principal) | CPT/HCPCS: 77063; 77067 ==

== ENCOUNTER 2025-06-03 13:36 | Outpatient (REF) | payer MEDICAID, SELFPAY ==
--- OUTSIDE RECORDS SUMMARY | 2025-05-30 10:30 | XMS_ITS | Encounter Summary ---
Author Organization [employer] Address 75 [facility] 7t h Floor [place] [id number] Care Team Providers Care Media Marketing Specialist Name Role Phone Raysa Mccollum MD Primary Care Provider + Encounter Details Date Type Department Care Team (Late st Contact Info) Description 05/30/2025 10:30 AM EST Office Visit [facility] MEDICINE [address] [place], [place] [phone] Raysa Mccollum MD [address] [place], [place] [phone] Epigastric pain (Primary Dx); Type 2 diabetes mellitus without complication, without long-term current use of insulin (HCC); Primary hypertension Social History Tobacco Use Types [...] AM EDT documented as of this encounter Last Filed Vital Signs Vital Sign Reading Time Taken Comments Blood Pressure 172/84 05/30/2025 10:48 AM EST Pulse 94 05/30/2025 10:48 AM EST Temperature 36.3 C (97.3 F) 05/30/2025 10:48 AM EST Respiratory Rate 28 05/30/2025 10:48 AM EST Oxygen Saturation 98% 05/30/2025 10:48 AM EST Inhaled Oxygen Concentration - - Weight 87.7 kg (193 lb 6.4 oz) 05/30/2025 10:48 AM EST Height 160 cm (5' 3 ) 05/30/2025 10:48 AM EST Body Mass Index 34.26 05/30/2025 10:48 AM EST documented in this encounter Progress Notes * Raysa Mccollum MD - 05/30/2025 10:30 AM EST SUBJECTIVE: En Reyna is a 55 y.o. year old female who presents for sick visit/abdominal pain. Denies recent illness, injury, or hospitalization. Hyperglycemia Notes elevated blood sugar, with a recent value of 160 mg/dL at home. Takes metformin two tablets in the morning (1000mg) and one at night, and sometimes two tablets together in the morning and two at night. Patient has not taking any DM or hypertension medications this morning. Acute Concerns: Epigastric Pain Reports intermittent pain in the upper abdomen, sometimes radiating to the RUQ and mid abdominal. Pain worsens with episodes of fasting and is partially relieved by food. No diarrhea/ BRBPR or melena. She has had similar pain episodes last year and two years ago, each lasting about one week. Social History Social History Narrative Not on file Problem List[1] Family History[2] Review of Systems Constitutional: Negative for chills, fatigue and fever. HENT: Negative for congestion, ear pain, nosebleeds, rhinorrhea, sinus pressure, sore throat and trouble swallowing. Eyes: Negative for pain and discharge. Respiratory: Negative for cough, chest tightness and shortness of breath. Cardiovascular: Negative for chest pain, palpitations and leg swelling. Gastrointestinal: Positive for abdominal distention and abdominal pain. Negative for blood in stool, constipation, diarrhea and nausea. Endocrine: Negative for polydipsia and polyuria. Genitourinary: Negative for dysuria, frequency, genital sores, pelvic pain and vaginal discharge. Musculoskeletal: Negative for back pain and neck pain. Skin: Negative for rash. Allergic/Immunologic: Negative for environmental allergies. Neurological: Positive for dizziness and headaches. Negative for seizures, weakness and light-headedness. Hematological: Negative for adenopathy. Psychiatric/Behavioral: Negative for agitation, behavioral problems, self-injury and suicidal ideas. OBJECTIVE: Vitals: 05/30/25 1048 BP: (!) 172/84 Pulse: 94 Resp: (!) 28 Temp: 97.3 ??F (36.3 ??C) SpO2: 98% Physical Exam HENT: Right Ear: Tympanic membrane and ear canal normal. Left Ear: Tympanic membrane and ear canal normal. Mouth/Throat: Mouth: Mucous membranes are moist. Pharynx: No oropharyngeal exudate or posterior oropharyngeal erythema. Eyes: Pupils: Pupils are equal, round, and reactive to light. Cardiovascular: Rate and Rhythm: Regular rhythm. Pulses: Normal pulses. Heart sounds: Normal heart sounds. No murmur heard. Pulmonary: Breath sounds: Normal breath sounds. Abdominal: General: Bowel sounds are normal. Palpations: Abdomen is soft. Tenderness: There is abdominal tenderness in the epigastric area. There is no guarding. Musculoskeletal: General: Normal range of motion. Cervical back: Neck supple. Skin: General: Skin is warm. Neurological: General: No focal deficit present. Mental Status: She is alert and oriented to person, place, and time. Psychiatric: Mood and Affect: Mood normal. Behavior: Behavior normal. Office Visit on 05/30/2025 Component Date Value Ref Range Status Glucose Blood, POC 05/30/2025 277 (A) 60 - 200 mg/dL Corrected random QC Media Lot # 05/30/2025 [id number] Final Lot# Expiration Date 05/30/2025 [id number] Final Problem List Items Addressed This Visit Epigastric pain - Primary It could be related to GERD, exacerbated by metformin, uncontrolled DM or PUD (H. pylori?). Order H. pylori testing and follow-up results Use sucralfate x 1 week and follow-up with me in 1 month We discussed about weight reduction, to have low-fat meals, to have small inflection meals to avoidGERD. Relevant Medications sucralfate (Carafate) 1 g tablet Other Relevant Orders Helicobacter pylori Antigen, EIA, Stool Type 2 diabetes mellitus without complication, without long-term current use of insulin (HCC) (Chronic) Noncompliant with metformin, reminded to take metformin 1000 mg twice daily with meals, monitor GI symptoms and follow-up with me in 1 month. See previous DM evaluation Relevant Orders POCT Glucose (Completed) Hypertension Uncontrolled today, she has not taken medications today Reminded to take medications every day and follow-up with me in 1 month with BP readings This note was drafted using Ambient (AI) technology. The patient/patient's guardian has been informed and has consented to the use of this technology: Yes Follow Up: Medications Ordered Prior to Encounter[3] [1] Patient Active Problem List Diagnosis Acute frontal sinusitis Adverse effect of simvastatin Anxiety about health Arthritis Asthma Candidal intertrigo Chest pain Chronic low back pain Chronic frontal sinusitis Foot callus Gastroesophageal reflux disease Tinea pedis Hypertension Mixed hyperlipidemia Lumbar radiculopathy Asymptomatic microscopic hematuria Migraine Obesity Pain in female pelvis Pain in thoracic spine Paresthesia of hand Precordial pain Primary insomnia Right flank pain Tension-type headache Thoracic radiculopathy Primary osteoarthritis of right shoulder Vulvovaginitis due to yeast Arthritis of right knee Encounter for screening colonoscopy Meniscal injury, right, subsequent encounter Chronic thoracic spine pain Neck sprain Vitamin D deficiency Anxiety Sore throat Kidney stones Open fracture of tooth Non-restorable tooth Cervical paraspinal muscle spasm Chronic pain of both shoulders Non-recurrent acute serous otitis media of both ears Cervical radiculopathy Epigastric pain Type 2 diabetes mellitus without complication, without long-term current use of insulin ([facility]) [2] Family History Problem Relation Name Age of Onset Diabetes Mother Hypertension Mother [3] Current Outpatient Medications on File Prior to Visit Medication Sig Dispense Refill Acetaminophen Extra Strength 500 MG tablet TAKE 2 TABLETS BY MOUTH EVERY 6 HOURS NEEDED FOR BBTV560 tablet 3 albuterol (Ventolin HFA) 108 (90 Base) MCG/ACT inhaler INHALE 2 PUFFS BY MOUTH EVERY 4 TO 6 HOURS NEEDED 18 g 2 bacitracin-polymyxin b (Polysporin) ointment Apply topically 2 times daily. Apply to affected area daily 30 g 0 Blood Glucose Monitoring Suppl (FreeStyle glucose monitoring) kit Use to test blood sugar twice daily 1 each 0 cyclobenzaprine (Flexeril) 10 MG tablet TAKE 1 TABLET BY MOUTH EVERY DAY AT BEDTIME 30 tablet 0 Desitin 13 % cream APPLY TO THE AFFECTED AREA(S) TWICE DAILY ergocalciferol (Vitamin D2) 1.25 MG (92131 UT) capsule TAKE 1 CAPSULE BY MOUTH ONCE A WEEK 12 capsule 0 gabapentin (Neurontin) 100 MG capsule Take 1 capsule (100 mg) by mouth 2 times daily. 180 capsule 1 glucose blood (FREESTYLE LITE) test strip TEST BLOOD SUGAR TWICE DAILY 100 strip 5 hydroCHLOROthiazide (HYDRODiuril) 25 MG tablet TAKE 1 TABLET BY MOUTH EVERY DAY IN THE MORNING 90 tablet 3 lidocaine (Lidoderm) 5 % patch APPLY 1 PATCH TOPICALLY TO SKIN, LEAVE ON FOR 12 HOURS AND OFF FOR 12 HOURS DIRECTED 30 patch 5 losartan (Cozaar) 50 MG tablet Take 1 tablet (50 mg) by mouth Once per day. 90 tablet 3 metFORMIN (Glucophage) 500 MG tablet Take 2 tablets (1,000 mg) by mouth with breakfast and with evening meal. 360 tablet 3 Mometasone Furoate (Asmanex HFA) 200 MCG/ACT aerosol Inhale 2 puffs 2 times daily. 13 g 11 omeprazole (PriLOSEC) [address] capsule TAKE 1 CAPSULE BY MOUTH ONCE DAILY SITagliptin (Januvia) 50 MG tablet Take 1 tablet (50 mg) by mouth Once per day. 90 tablet 1 traZODone (Desyrel) 50 MG tablet TAKE 1 TABLET BY MOUTH EVERY DAY AT BEDTIME 30 tablet 3 triamcinolone (Kenalog) 0.1 % cream APPLY A THIN LAYER TO AFFECTED AREA(S) TWICE DAILY DIRECTED,USE SPARINGLY 60 g 1 TRUEplus Lancets 33G misc TEST BLOOD SUGAR TWICE DAILY 100 each 11 Zinc Oxide 22 % cream Use bid to affected area 113 g 0 No current facility-administered medications on file prior to visit. documented in this encounter Miscellaneous Notes * Assessment & Plan Note - Raysa Mccollum MD - 05/30/2025 11:13 AM EST Associated Problem(s): Hypertension Uncontrolled today, she has not taken medications today Reminded to take medications every day and follow-up with me in 1 month with BP readings * Assessment & Plan Note - Raysa Mccollum MD - 05/30/2025 11:12 AM EST Associated Problem(s): Epigastric pain It could be related to GERD, exacerbated by metformin, uncontrolled DM or PUD (H. pylori?). Order H. pylori testing and follow-up results Use sucralfate x 1 week and follow-up with me in 1 month We discussed about weight reduction, to have low-fat meals, to have small inflection meals to avoidGERD. * Assessment & Plan Note - Raysa Mccollum MD - 05/30/2025 11:11 AM EST Associated Problem(s): Type 2 diabetes mellitus without complication, without long-term current useof insulin (HCC) Noncompliant with metformin, reminded to take metformin 1000 mg twice daily with meals, monitor GI symptoms and follow-up with me in 1 month. See previous DM evaluation documented in this encounter Plan of Treatment Upcoming Encounters Date Type Department Care Team (Late st Contact Info) Description 07/04/2025 1:00 PM EST Office Visit [facility] OPTOMETRY [address] [place] [address] Mercedes Carter, OD [address] [place] [address] 08/05/2025 10:30 AM EST Office Visit [facility] MEDICINE [address] [place] [address] Raysa Mccollum MD [address] [place] [address] Scheduled Orders Name Type Priority Associated Diagnoses Orde r Schedule Helicobacter pylori Antigen, EIA, Stool Lab Routine Epigastric pain Expected: 05/30/2025, Expires: 05/30/2026 documented as of this encounter Procedures Procedure Name Priority Date/Time Associated Diagnosis Comments POCT GLUCOSE Routine 05/30/2025 10:51 AM EST Type 2 diabetes mellitus without complication, without long-term current use of insulin (HCC) documented in this encounter Results * (ABNORMAL) POCT Glucose (05/30/2025 10:51 AM EST) [facility] Glucose Blood, POC 277(A) 60 - 200 mg/dL Comment:random QC Media Lot # [id number] Lot# Expiration Date 3, Blood Capillary blood specimen / Unknown 05/30/2025 10:51 AM EST Raysa Mccollum MD POINT OF CARE TE ST ENTER/EDIT ORDERABLES Edited Result - Final documented in this encounter Visit Diagnoses Diagnosis Epigastric pain- Primary Abdominal pain, epigastric Type 2 diabetes mellitus without complication, without long-term current use of insulin (HCC) Primary hypertension Unspecified essential hypertension documented in this encounter Additional Health Concerns Assessment Noted Time PHQ-9 Depression Total Score: 0 03/12/20 25 12:04 PM EDT documented as of this encounter Care Teams Media Marketing Specialist Relationship Specialty Start Date End Date Raysa Mccollum MD [address] [place] [id number] PCP - General Family Medicine 03/10/17 documented as of this encounter
--- OUTSIDE RECORDS SUMMARY | 2025-06-03 15:46 | XMS_ITS | Encounter Summary ---
Author Organization [employer] Address 75 [facility] 7t [place] [address] Care Team Providers Care Personal Companion Name Role Phone Raysa Mccollum MD Primary Care Provider + Reason for Visit * Reason Comments Med Refill Encounter Details Date Type Department Care Team ([facility] st Contact Info) Description 08/01/2023 Refill [facility] MEDICINE [address] [place], [place] [phone] Raysa Mccollum MD [address] [place], [place] [phone] Moderate persistent asthma without complication Social History [...] Description 07/04/2025 1:00 PM EST Office Visit [facility] OPTOMETRY [address] [place] [address] RaulMercedes alvarado, OD [address] [place] [address] 08/05/2025 10:30 AM EST Office Visit [facility] MEDICINE [address] [place] [address] Raysa Mccollum MD [address] [place] [address] documented as of this encounter Visit Diagnoses Diagnosis Moderate persistent asthma without complication documented in this encounter Additional Health Concerns Assessment Noted Time PHQ-9 Depression Total Score: 0 08/24/19 23 11:35 AM EST documented as of this encounter Care Teams Personal Companion Relationship Specialty Start Date End Date Raysa Mccollum MD [address] [place] [address] PCP - General Family Medicine 03/10/17 documented as of this encounter
--- OUTSIDE RECORDS SUMMARY | 2025-06-03 15:46 | XMS_ITS | Encounter Summary ---
Author Organization [employer] Address 75 [facility] 7t [place] [address] Care Team Providers Care Paper Cutter Operator Name Role Phone Raysa Mccollum MD Primary Care Provider + Reason for Visit * Reason Onset Date Comments Appointment Request 12/03/2024 Encounter Details Date Type Department Care Team ([facility] st Contact Info) Description 12/03/2024 Telephone [facility] MEDICINE [address] [place], [place] [phone] Raysa Mccollum MD 230 [place], [place] [phone] Appointment Request Social History Tobacco Use Types [...] Description 07/04/2025 1:00 PM EST Office Visit [facility] OPTOMETRY [address] [place] [address] Mercedes Carter, OD [address] [place] [address] 08/05/2025 10:30 AM EST Office Visit [facility] MEDICINE [address] [place] [address] Raysa Mccollum MD [address] [place] [address] documented as of this encounter Visit Diagnoses Not on filedocumented in this encounter Additional Health Concerns Assessment Noted Time PHQ-9 Depression Total Score: 1 09/15/19 24 10:37 AM EST documented as of this encounter Care Teams Paper Cutter Operator Relationship Specialty Start Date End Date Raysa Mccollum MD [address] [place] [id number] PCP - General Family Medicine 03/10/17 documented as of this encounter
--- OUTSIDE RECORDS SUMMARY | 2025-06-03 15:46 | XMS_ITS | Encounter Summary ---
Author Organization [employer] Address 75 [facility] 7t [place] [address] Care Team Providers Care Concrete Puddler Name Role Phone Raysa Mccollum MD Primary Care Provider + Reason for Visit * Reason Onset Date Comments Nurse Triage 03/04/2025 Encounter Details Date Type Department Care Team (Late st Contact Info) Description 03/04/2025 Telephone [facility] MEDICINE [address] [place], [place] [phone] Raysa Mccollum MD [address] [place], [place] [phone] Nurse Triage Social History Tobacco Use Types [...] drainage. Pt is advised to come to [facility] which is open till 8pm and Pt [...] back regarding prior message. Contact pt at [phone] * Telephone Encounter - Juanito Burrell - [...] Description 07/04/2025 1:00 PM EST Office Visit [facility] OPTOMETRY [address] [place] [address] Mercedes Carter, OD [address] [place] [address] 08/05/2025 10:30 AM EST Office Visit [facility] MEDICINE [address] [place] [address] Raysa Mccollum MD [address] [place] [address] documented as of this encounter Visit Diagnoses Not on filedocumented in this encounter Additional Health Concerns Assessment Noted Time PHQ-9 Depression Total Score: 1 09/15/19 24 10:37 AM EST documented as of this encounter Care Teams Concrete Puddler Relationship Specialty Start Date End Date Raysa Mccollum MD [address] [place] [address] PCP - General Family Medicine 03/10/17 documented as of this encounter
--- OUTSIDE RECORDS SUMMARY | 2025-06-03 15:46 | XMS_ITS | Encounter Summary ---
Author Organization [employer] Address 75 [facility] 7t [place] [address] Care Team Providers Care Physicist Acoustics Name Role Phone Raysa Mccollum MD Primary Care Provider + Encounter Details Date Type Department Care Team ([facility] Contact Info) Description 01/08/2023 Orders Only [facility] MEDICINE [address] [place] [address] Nay Westbrook MD [address] [place] [address] Recurrent candidiasis of vagina (Primary Dx) Social [...] Upcoming Encounters Date Type Department Care Team ([facility] Contact Info) Description 07/04/2025 1:00 PM EST Office Visit [facility] OPTOMETRY [address] [place] [address] Mercedes Carter, OD [address] [place], [place] [phone] 08/05/2025 10:30 AM EST Office Visit [facility] MEDICINE [address] [place], [place] [phone] Raysa Mccollum MD [address] [place], [place] [phone] documented as of this encounter Visit Diagnoses Diagnosis Recurrent candidiasis of vagina- Primary documented in this encounter Additional Health Concerns Assessment Noted Time PHQ-9 Depression Total Score: 0 08/24/19 23 11:35 AM EST documented as of this encounter Care Teams Physicist Acoustics Relationship Specialty Start Date End Date Raysa Mccollum MD [address] [place] [phone] PCP - General Family Medicine 03/10/17 documented as of this encounter
--- OUTSIDE RECORDS SUMMARY | 2025-06-03 15:46 | XMS_ITS | Encounter Summary ---
Author Organization [employer] Address [address] [facility] [address] [place] [address] Care Team Providers Care Rn Acute Dialysis Name Role Phone Raysa Mccollum MD Primary Care Provider + Encounter Details Date Type Department Care Team (Late st Contact Info) Description 04/14/2024 Orders Only [facility] WALK-IN CENTER [address] [place], [place] [phone] Guillermo Reeys MD [address] [place], [place] [phone] Social History Tobacco Use Types Packs/Day Years [...] [facility] OPT[facility] [address] [place] [address] Raul, Mercedes, OD [address] [place] [address] 08/05/2025 10:30 AM EST Office Visit [facility] MEDICINE [address] [place] [address] Raysa Mccollum MD [address] [place] [address] documented as of this encounter Visit Diagnoses Not on filedocumented in this encounter Additional Health Concerns Assessment Noted Time PHQ-9 Depression Total Score: 1 09/15/19 24 10:37 AM EST documented as of this encounter Care Teams Rn Acute Dialysis Relationship Specialty Start Date End Date Raysa Mccollum MD [address] [place] [address] PCP - General Family Medicine 03/10/17 documented as of this encounter
--- OUTSIDE RECORDS SUMMARY | 2025-06-03 15:46 | XMS_ITS | Encounter Summary ---
Author Organization [employer] Address 75 [facility] 7t [place] [address] Care Team Providers Care Labor Gang Supervisor Name Role Phone Raysa Mccollum MD Primary Care Provider + Reason for Visit * Reason Comments Med Refill Encounter Details Date Type Department Care Team (Late Contact Info) Description 01/05/2023 Refill [facility] MEDICINE [address] [place] [address] [facility] 230 [place] [address] Primary hypertension Social History Tobacco Use Types [...] Visit [facility] OPTOMETRY [address] [place], [place] [phone] Mercedes Carter, OD [address] [place], [place] [phone] 08/05/2025 10:30 AM EST Office Visit [facility] MEDICINE [address] [place], [place] [phone] Raysa Mccollum MD [address] [place], [place] [phone] documented as of this encounter Visit Diagnoses Diagnosis Primary hypertension Unspecified essential hypertension documented in this encounter Additional Health Concerns Assessment Noted Time PHQ-9 Depression Total Score: 0 08/24/19 23 11:35 AM EST documented as of this encounter Care Teams Labor Gang Supervisor Relationship Specialty Start Date End Date Raysa Mccollum MD [address] [place], [place] [phone] PCP - General Family Medicine 03/10/17 documented as of this encounter
--- OUTSIDE RECORDS SUMMARY | 2025-06-03 15:46 | XMS_ITS | Encounter Summary ---
Author Organization [employer] Address 75 [facility] [address]t [place] [address] Care Team Providers Care Distributed Generation Project Manager Name Role Phone Raysa Mccollum MD Primary Care Provider + Reason for Visit * Reason Onset Date Comments Med Refill 01/30/2025 Medication Question 01/30/2025 Encounter Details Date Type Department Care Team ([facility] st Contact Info) Description 01/30/[address] [facility] MEDICINE [address] [place], [place] [phone] Raysa Mccollum MD [address] [place], [place] [phone] Med Refill; Medication Question Social History Tobacco [...] for glucose blood (FREESTYLE LITE) test strip. Motorcycle Mechanic advise pt script is currently pending. Pt requested a message to be sent due to not having any for tomorrow. documented in this encounter Plan of Treatment Upcoming Encounters Date Type Department Care Team (Late st Contact Info) Description 07/04/2025 1:00 PM EST Office Visit [facility] OPTOMETRY [address] [place] [address] Mercedes Carter, OD [address] [place] [address] 08/05/2025 10:30 AM EST Office Visit [facility] MEDICINE [address] [place] [address] Raysa Mccollum MD [address] [place] [address] documented as of this encounter Visit Diagnoses Not on filedocumented in this encounter Additional Health Concerns Assessment Noted Time PHQ-9 Depression Total Score: 1 09/15/19 24 10:37 AM EST documented as of this encounter Care Teams Distributed Generation Project Manager Relationship Specialty Start Date End Date Raysa Mccollum MD [address] [place] [address] PCP - General Family Medicine 03/10/17 documented as of this encounter
--- OUTSIDE RECORDS SUMMARY | 2025-06-03 15:46 | XMS_ITS | Encounter Summary ---
Author Organization [employer] Address [address] [facility] [address] 7[address] [place] [address] Care Team Providers Care School Bus Driver/Custodian Name Role Phone Raysa Mccollum MD Primary Care Provider + Encounter Details Date Type Department Care Team (Late st Contact Info) Description 04/14/2024 Orders Only [facility] [address] [place], [place] [phone] Guillermo Reyes MD [address] [place], [place] [phone] Social History Tobacco Use Types Packs/Day Years [...] Description 07/04/2025 1:00 PM EST Office Visit [facility] OPTOMETRY [address] [place] [address] Raul, Mercedes, OD 230 [place] [address] 08/05/2025 10:30 AM EST Office Visit [facility] MEDICINE [address] [place] [address] Raysa Mccollum MD [address] [place] [address] documented as of this encounter Visit Diagnoses Not on filedocumented in this encounter Additional Health Concerns Assessment Noted Time PHQ-9 Depression Total Score: 1 09/15/19 24 10:37 AM EST documented as of this encounter Care Teams School Bus Driver/Custodian Relationship Specialty Start Date End Date Raysa Mccollum MD [address] [place] [address] PCP - General Family Medicine 03/10/17 documented as of this encounter
--- OUTSIDE RECORDS SUMMARY | 2025-06-03 15:46 | XMS_ITS | Clinical Summary ---
Author Organization [employer] Address [address] [place] [address] Care Team Providers Care Plant Worker Name Role Phone Yosi Dhillon MD Primary Care Provider + Allergies Active Allergy Reactions Criticality Noted Date Comments Aspirin 07/16/2010 Atorvastatin Palpitations Low 06/07/2019 Clindamycin 09/13/2019 Fluticasone 12/29/2011 Other reaction(s): lumps in nose Ibuprofen Hives 07/16/2010 Penicillin V 07/16/2010 Other reaction(s): unspecified Statins High 07/03/2022 [id number] REDUCTASE INHIBITORS Reactions: HIVES/Skin Rash, Trouble Breathing per previous EHR Sulfamethoxazole High 02/02/2021 Other reaction(s): Chest pain, Hives / Skin Rash Trimethoprim High 02/02/2021 Medications Blood Glucose Monitoring Suppl (FreeStyle glucose monitoring) kitIndications:Ty pe 2 diabetes mellitus without complication, without long-term current use of insulin (HCC) Use to test blood sugar twice daily 1 each 08/18/19 23 Active Zinc Oxide 22 % creamIndications: Vulvovaginitis due to yeast Use bid to affected area 113 g 10/26/19 23 Active Desitin 13 % cream APPLY TO THE AFFECTED AREA(S) TWICE DAILY 10/26/19 23 Active omeprazole (PriLOSEC) [address] capsule TAKE 1 CAPSULE BY MOUTH ONCE DAILY 05/09/20 23 Active albuterol (Ventolin HFA) 108 (90 Base) MCG/ACT inhalerIndication s:Mild asthma without complication, unspecified whether persistent INHALE 2 PUFFS BY MOUTH EVERY 4 TO 6 HOURS NEEDED 18 g 2 02/21/20 24 Active bacitracin-polymy ross b (Polysporin) ointment Apply topically 2 times daily. Apply to affected area daily 30 g 04/12/20 24 Active TRUEplus Lancets 33G miscIndications:T ype 2 diabetes mellitus without complication, without long-term current use of insulin ([facility]) TEST BLOOD SUGAR TWICE DAILY 100 each 11 05/14/20 24 Active traZODone (Desyrel) 50 MG tablet TAKE 1 TABLET BY MOUTH EVERY DAY AT BEDTIME 30 tablet 3 06/05/20 24 Active Mometasone Furoate (Asmanex HFA) 200 MCG/ACT aerosol Inhale 2 puffs 2 times daily. 13 g 11 08/28/19 25 Active gabapentin (Neurontin) 100 MG capsule Take 1 capsule (100 mg) by mouth 2 times daily. 180 capsule 1 09/18/19 25 Active triamcinolone (Kenalog) 0.1 % creamIndications: Dermatitis APPLY A THIN LAYER TO AFFECTED AREA(S) TWICE DAILY DIRECTED, USE SPARINGLY 60 g 1 10/19/19 25 Active Acetaminophen Extra Strength 500 MG tabletIndications :Lumbar radiculopathy TAKE 2 TABLETS BY MOUTH EVERY 6 HOURS NEEDED FOR PAIN 120 tablet 3 12/01/19 25 Active hydroCHLOROthiazi de (HYDRODiuril) 25 MG tabletIndications :Primary hypertension TAKE 1 TABLET BY MOUTH EVERY DAY IN THE MORNING 90 tablet 3 12/01/19 25 Active losartan (Cozaar) 50 MG tablet Take 1 tablet (50 mg) by mouth Once per day. 90 tablet 3 12/01/19 25 026 Active glucose blood (FREESTYLE LITE) test stripIndications: Type 2 diabetes mellitus without complication, without long-term current use of insulin ([facility]) TEST BLOOD SUGAR TWICE DAILY 100 strip 5 01/31/20 25 Active ergocalciferol (Vitamin D2) 1.25 MG (39640 UT) capsuleIndication s:Arthritis,Vitam in D deficiency TAKE 1 CAPSULE BY MOUTH ONCE A WEEK 12 capsule 01/31/20 25 Active lidocaine (Lidoderm) 5 % patch APPLY 1 PATCH TOPICALLY TO SKIN, LEAVE ON FOR 12 HOURS AND OFF FOR 12 HOURS DIRECTED 30 patch 5 03/12/20 25 Active metFORMIN (Glucophage) 500 MG tabletIndications :Type 2 diabetes mellitus without complication, without long-term current use of insulin ([facility]) Take 2 tablets (1,000 mg) by mouth with breakfast and with evening meal. 360 tablet 3 03/12/20 25 026 Active SITagliptin (Januvia) 50 MG tablet Take 1 tablet (50 mg) by mouth Once per day. 90 tablet 1 03/12/20 25 026 Active cyclobenzaprine (Flexeril) 10 MG tabletIndications :Lumbar radiculopathy TAKE 1 TABLET BY MOUTH EVERY DAY AT BEDTIME 30 tablet 05/21/20 25 Active sucralfate (Carafate) 1 g tablet Take 1 tablet (1 g) by mouth before breakfast, before lunch, before evening meal, and at bedtime for 7 days. 28 tablet 05/30/20 25 025 Active cyclobenzaprine (Flexeril) 10 MG tabletIndications :Lumbar radiculopathy TAKE 1 TABLET BY MOUTH AT BEDTIME 30 tablet 01/31/20 25 025 Discontinued Active Problems Problem Noted Date Diagnosed Date Epigastric pain 05/30/2025 Assessment & Plan (05/30/2025 11:12 AM EST): It could be related to GERD, exacerbated by metformin, uncontrolled DM or PUD (H. pylori?). Order H. pylori testing and follow-up results Use sucralfate x 1 week and follow-up with me in 1 month We discussed about weight reduction, to have low-fat meals, to have small inflection meals to avoid GERD. Cervical radiculopathy 03/12/2025 Assessment & Plan (03/12/2025 [...] in 3 months Type 2 diabetes mellitus wit hout complication, without long-term current use of insulin 07/03/2022 Assessment & Plan (05/30/2025 11:11 AM EST): Noncompliant with metformin, reminded to take metformin 1000 mg twice daily with meals, monitor GI symptoms and follow-up with me in 1 month. See previous DM evaluation Assessment & Plan (05/30/2025 11:11 AM EST): >>ASSESSMENT AND PLAN FOR TYPE 2 DIABETES MELLITUS WITHOUT COMPLICATION WRITTEN ON 08/24/2022 12:07 PM BY KIMBERLY Miller. Pt agreed to start med boxes to simplify medication regimen and improve med compliance. Continue with metformin same dose and fu with me next month and confirm A1c. Assessment & Plan (05/30/2025 11:11 AM EST): >>ASSESSMENT AND PLAN FOR TYPE 2 DIABETES MELLITUS WITHOUT COMPLICATION WRITTEN ON 10/25/2022 3:51 PM BY KIMBERLY Miller. A1C is 10.4. We discussed PO medications including injectables. She wants to avoid injectables at this time. She wants to start jaradiance 25 mg Counseled re more frequent low calorie/carb meals. Check fgstk daily Encouraged physical activity as tolerated. Continue metformin and FU with me in 4 weeks. Assessment & Plan (05/30/2025 11:11 AM EST): >>ASSESSMENT AND PLAN FOR TYPE 2 DIABETES MELLITUS WITHOUT COMPLICATION WRITTEN ON 12/09/2022 1:38 PM BY KIMBERLY VALDEZ Most likely still uncontrolled. discussed with pt regarding importance of taking medications regularly as opposed to PRN Continue Metformin 500mg BID + Jardiance 25 mg daily and fu with me in 6 weeks. Counseled re more frequent low calorie/carb meals. Encouraged physical activity as tolerated. Assessment & Plan (05/30/2025 11:11 AM EST): >>ASSESSMENT AND PLAN FOR TYPE 2 DIABETES MELLITUS WITHOUT COMPLICATION WRITTEN ON 03/10/2023 11:31 AM BY [employer] metformin to 750mg BID, cont jardiance Counseled re more frequent low calorie/carb meals. Encouraged physical activity as tolerated. FU in 4 weeks Assessment & Plan (05/30/2025 11:11 AM EST): >>ASSESSMENT AND PLAN FOR TYPE 2 DIABETES MELLITUS WITHOUT COMPLICATION WRITTEN ON 05/19/2023 1:40 PM BY [place] WHITAKER Uncontrolled, Pt noncompliant w/ medication, it is likely we need to optimize her Rx treatment I will cont Metformin 750 mg BID + Jardiance Will refer to [facility] clinic and med boxes and fu with me in 2 m I gave her info about DM control Refer to financial aid counselor She declined flu IZ today Assessment & Plan (05/30/2025 11:11 AM EST): >>ASSESSMENT AND PLAN FOR TYPE 2 DIABETES MELLITUS WITHOUT COMPLICATION WRITTEN ON 09/15/2023 11:13 AM BY [place] WHITAKER Uncontrolled, non compliant w/ meds and probably meals Restart jardiance daily and metformin BID Counseled re more frequent low calorie/carb meals. Will refer to [facility] pharmacy program and start on pill boxes Encouraged physical activity as tolerated. FU in 3 wks. Assessment & Plan (05/30/2025 11:11 AM EST): >>ASSESSMENT AND PLAN FOR TYPE 2 DIABETES MELLITUS WITHOUT COMPLICATION WRITTEN ON 11/17/2023 12:46 PM BY [place] WHITAKER Most likely uncontrolled Stressed importance of low calorie intake, cut off sweetened drinks and favor water Increase Metformin to 1000mg BID, continue Jardiance Counseled re more frequent low calorie/carb meals. Check fgstk daily Encouraged physical activity as tolerated. FU in 4 months. Advised to reschedule CDTM appointment Assessment & Plan (05/30/2025 11:11 AM EST): >>ASSESSMENT AND PLAN FOR TYPE 2 DIABETES MELLITUS WITHOUT COMPLICATION WRITTEN ON 01/02/2024 2:00 PM BY YOSI DHILLON MD Uncontrolled. Patient is not complaint with diet [...] declined. She also missed several appts with financial aid counselor in the past. Assessment & Plan (05/30/2025 11:11 AM EST): >>ASSESSMENT AND PLAN FOR TYPE 2 DIABETES MELLITUS WITHOUT COMPLICATION WRITTEN ON 02/07/2024 8:18 PM BY YOSI DHILLON MD Still uncontrolled, we discussed re importance of [...] tolerated. FU in 6-8w Assessment & Plan (05/30/2025 11:11 AM EST): >>ASSESSMENT AND PLAN FOR TYPE 2 DIABETES MELLITUS WITHOUT COMPLICATION WRITTEN ON 09/18/2024 4:20 PM BY BEVERLEY LOCKHART Uncontrolled, non-compliant with Metformin. Advised to take Metformin 1000 mg daily as opposed to prn. FU in 6 weeks. Counseled re more frequent low calorie/carb meals. Encouraged physical activity as tolerated. Assessment & Plan (05/30/2025 11:11 AM EST): >>ASSESSMENT AND PLAN FOR TYPE 2 DIABETES MELLITUS WITHOUT COMPLICATION WRITTEN ON 11/30/2024 12:32 PM BY YOSI DHILLON MD It seems to be better controlled, I discussed with patient importance of taking metformin twice daily, always with meals to avoid hypoglycemia. She seems to be tolerating medication well Continue metformin 500 mg twice daily I will refer to dietitian Follow-up with me in 2 months Assessment & Plan (05/30/2025 11:11 AM EST): >>ASSESSMENT AND PLAN FOR TYPE 2 DIABETES MELLITUS WITHOUT COMPLICATION WRITTEN ON 03/12/2025 1:34 PM BY YOSI DHILLON MD It is uncontrolled, we discussed importance that [...] Foot examination is normal, no diabetic neuropathy Lumbar radiculopathy 09/08/2018 Assessment & Plan (11/30/2024 [...] sinusitis 04/22/2017 Hypertension 05/02/2013 Assessment & Plan (05/30/2025 11:13 AM EST): Uncontrolled today, she has not taken medications today Reminded to take medications every day and follow-up with me in 1 month with BP readings Assessment & Plan (03/12/2025 1:37 PM EDT): [...] LE trace ,[facility] ed[facility] cx -px macrobid x [...] Encounters Date Type Department Care Team Description 05/30/2025 10:30 AM EST Office Visit [address] [address] Yosi Dhillon MD Epigastric pain (Primary Dx); Type 2 diabetes mellitus without complication, without long-term current use of insulin (HCC); Primary hypertension 05/20/2025 Refill [facility] [address] [place] [address] Yosi Dhillon MD Lumbar radiculopathy 05/02/[address] [address] Yosi Dhillon MD Appointment Request 03/12/2025 11:45 AM EDT Office Visit [address] [address] Yosi Dhillon MD Type 2 diabetes mellitus without complication, without long-term current use of insulin (CMS/HCC) (Primary Dx); Cervical radiculopathy; Cervical paraspinal muscle spasm; Class 1 obesity due to excess calories with serious comorbidity and body mass index (BMI) of 33.0 to 33.9 in adult; Dietary counseling; Exercise counseling; Screening mammogram for breast cancer; Primary hypertension 03/12/2025 Telephone [facility] [address] [place] [address] Yosi Dhillon MD MAMMO ORDER FAXED 03/12/2025 Travel 03/11/[address] [address] Yosi Dhillon MD chart prep 03/04/[address] [address] Yosi Dhillon MD Nurse Triage 03/04/2025 Telephone [facility] [address] [place] [address] Yosi Dhillon MD No Show from Last 3 Months Immunizations Immunization Administration [...] is your housing situation today? I have pilarsabino rowland 09/05/[address] you [...] Mass Index 34.26 05/30/2025 10:48 AM EST Plan of Treatment Upcoming Encounters Date Type Department Care Team (Late st Contact Info) Description 07/04/2025 1:00 PM EST Office Visit [facility] [address] [place] [address] Raul, Mercedes, OD [address] [place] [address] 08/05/2025 10:30 AM EST Office Visit [facility] [address] [place] [address] Yosi Dhillon MD [address] [place] [address] Health Maintenance Due Date Last Done Comments [...] - Td or Tdap) 04/11/2023 04/11/2013, 07/25/2008 Diabetes: Urine Protein Screening 01/06/2024 01/05/2023, 04/29/2020, [...] Additional history exists Disability Screening 03/12/2026 03/12/2025 Mammogram 04/23/2026 04/23/2025, 04/25, 01/08/2021, Additional history exists Tobacco Screening 05/30/2026 05/30/2025 Eye Exam 06/14/2026 06/14/2024, 05/26, 06/14/2024, Additional [...] without long-term current use of insulin (HCC) BI MAMMOGRAM SCREENING TOMOSYNTHESIS BILATERAL Routine 04/23/2025 1:40 PM EDT Screening mammogram for breast cancer POCT GLYCATED HEMOGLOBIN, TOTAL Routine 03/12/2025 12:04 PM EDT Type 2 diabetes mellitus without complication, without long-term current use of insulin (CMS/HCC) POCT GLUCOSE Routine 03/12/2025 12:03 PM EDT Type 2 diabetes mellitus without complication, without long-term current use of insulin (CMS/HCC) PANORAMIC RADIOGRAPHIC IMAGE Routine 07/10/2024 1:00 PM [...] Routine 01/05/2023 10:27 AM EDT Genital sore BITEWING - SINGLE RADIOGRAPHIC IMAGE Routine 02/24/2016 12:00 AM EDT from Last 3 Months or Most Recently Relevant to Health Maintenance Results * (ABNORMAL) POCT Glucose (05/30/2025 10:51 AM EST) Only the most recent of2 resultswithin the time period is included. Glucose Blood, POC 277(A) 60 - 200 mg/dL Comment:random QC Media Lot # [id number] Lot# Expiration Date Blood Capillary blood specimen / Unknown 05/30/2025 10:51 AM EST Yosi Dhillon MD POINT OF CARE TE ST ENTER/EDIT ORDERABLES Edited Result - Final * BI Mammogram Screening Tomosynthesis Bilateral (04/23/2025 1:40 PM EDT) Anatomical Region Laterality Modality Breast Bilateral Mammography 04/23/2025 1:40 PM EDT Narrative 04/26/2025 5:08 PM EDT [facility] [address] [place] [address] Mammography Report Signed Patient: En Reyna MR#: [id number] : 1970 Acct:[id number] Age/Sex: 55 / F ADM Date: 04/23/25 Loc: MAMMO Attending Dr: Yosi Dhillon MD Ordering Physician: Yosi Dhillon MD Results: 1Ne gative Date of Service: 04/23/25 Follow Up: 1 Year From Orig inal Mammogram Procedure(s): MM tomosynthesis screening BI Accession Number(s): [id number] cc: Yosi Dhillon MD Reason For Exam: Breast cancer screening EXAMINATION: MM SCREENING DIGITAL BREAST TOMOSYNTHESIS, BILATERAL CLINICAL INFORMATION: Screening. Asymptomatic. COMPARISON: Mammography: Comparison is made with available priors TECHNIQUE: Digital breast mammography with tomosynthesis is performed in both the craniocaudal and mediolateral oblique views along with computer-aided detection (CAD). FINDINGS: There are scattered areas of fibroglandular density. There are no significant masses, abnormal calcifications, or other abnormalities. MM/MM tomosynthesis screening BI IMPRESSION: No mammographic evidence of malignancy. ASSESSMENT: BI-RADS Category 1: Negative RECOMMENDATION: Routine annual mammography screening. 1 year F/U This examination should not preclude the clinical evaluation of a suspicious palpable abnormality. This patient's information was entered into a reminder system with a target due date for their next mammogram. Electronically signed by: Kallie De La Garza DO 04/26/2025 05:05 PM EDT RP Dictated By: Kallie De La Garza DO Signed By: <Electronically signed by Kallie De La Garza DO in OV> 04/26/25 1705 DD/ 1340 TD/TT: 04/23/25 1355 Business Support: Procedure Note Donotviryinterpreter, Image - 04/26/2025 [facility] [address] [place] [address] Mammography Report Signed Patient: Chelsie Reyna#: [id number] : 1970Acct:[id number] Age/Sex: 55 / FADM Date: 04/23/25 Loc: HO.MAMMO Attending Dr: Yosi Dhillon MD Ordering Physician: Yosi Dhillon MDResults: 1Ne gative Date of Service: 04/23/25Follow Up: 1 Year From Orig inal Mammogram Procedure(s): MM tomosynthesis screening BI Accession Number(s): [id number] cc: Yosi Dhillon MD Reason For Exam: Breast cancer screening EXAMINATION: MM SCREENING DIGITAL BREAST TOMOSYNTHESIS, BILATERAL CLINICAL INFORMATION: Screening. Asymptomatic. COMPARISON: Mammography: Comparison is made with available priors TECHNIQUE: Digital breast mammography with tomosynthesis is performed in both the craniocaudal and mediolateral oblique views along with computer-aided detection (CAD). FINDINGS: There are scattered areas of fibroglandular density. There are no significant masses, abnormal calcifications, or other abnormalities. MM/MM tomosynthesis screening BI IMPRESSION: No mammographic evidence of malignancy. ASSESSMENT: BI-RADS Category 1: Negative RECOMMENDATION: Routine annual mammography screening. 1 year F/U This examination should not preclude the clinical evaluation of a suspicious palpable abnormality. This patient's information was entered into a reminder system with a target due date for their next mammogram. Electronically signed by: Kallie De La Garza DO 04/26/2025 05:05 PM EDT RP Dictated By: Kallie De La Garza DO Signed By: <Electronically signed by Kallie De La Garza DO in OV> 04/26/25 1705 DD/ 1340 TD/TT: 04/23/25 1355 Business Support: Yosi Dhillon MD IMG BI PROCEDURES Final Result * (ABNORMAL) POCT HGB A1C (03/12/2025 12:04 PM EDT) Hemoglobin A1C 8.9(A) 4.0 - 5.7 % QC Media Lot # [id number] Lot# Expiration Date [id number] Blood 03/12/2025 12:0 4 PM EDT Yosi Dhillon MD POINT OF CARE TEST ENTER /EDIT ORDERABLES Final Result * Hm Colonoscopy (10/12/2023) Colonoscopy Normal Normal [facility] 10/12/2023 Yosi Dhillon MD HEALTH MAINTENANCE Final Result [facility] * Thinprep TIS PAP And HPV mRNA E6/E7 With Reflex To HPV 16,18/45 (01/05/2023 10:32 AM EDT) Clinical Information: 52YO F Sov[employer]t LMP: NONE GIVEN [employer] Prev. PAP: NONE GIVEN [employer] Prev. BX: NO [employer] SOURCE: None given [employer] Statement Of Adequacy: [employer] Comment: Satisfactory for evaluation. Endocervical/transformation zone component present. Interpretation/ Result: Negative for intraepithelial lesion or malignancy. [facility] [place] [facility] COMMENT: This Pap test has been evaluated with computer assisted technology. [employer] Cytotechnologis t: [facility] [place] [facility] Comment: SXA, CT(ASCP) CT screening location: [place] [address] ([facility]) [employer] Comment: EXPLANATORY NOTE: The Pap is a [...] HPV nRNA E6/E7 Not Detected Not Detected [employer] Comment: Methodology: Asset Protection Professional-Mediated Amplification This assay detects E6/E7 viral messenger RNA (mRNA) from 14 high-risk HPV types (16,18,31,33,35,39,45,51,52,56,58,59,66,68). Cervical sources are required for HPV testing. If a vaginal source from a patient who has had a total hysterectomy with removal of cervix was submitted, please contact the testing laboratory for alternative testing options. For additional information, please refer to http://education.UXFLIP/faq/TGK552c9 (This link if provided for information/ educational purposes only.) Genital 01/05/2023 10:3 2 AM EDT 01/06/2023 7:59 AM EDT Nay Westbrook MD LAB PATHOLOGY ORDERABLES Final Result Performing Organization Address [facility]/ZIP Co de Phone Number [facility] [address], [facility] [place] [address] [facility] [address] [place] [phone] * (ABNORMAL) Albumin, Random Urine W/Creatinine (01/05/2023 10:29 AM EDT) Creatinine, Random Urine 149 20 - 275 mg/dL [facility] [place] [facility] Albumin, Urine 6.8 See Note: mg/dL [facility] [place] [facility] Comment: Reference Range: Reference Range Not established Albumin/Creatinin e Ratio, Random Urine 46(H) <30 mcg/mg creat [facility] [place] [facility] Comment: The ADA defines abnormalities in albumin [...] 9 AM EDT 01/05/2023 10:29 AM EDT [facility] 01/05/2023 11:47 PM EDT FASTING:NO FASTING: NO Yosi Dhillon MD LAB URINE ORDERABLES Fin al Result Performing Organization Address [facility] Co de Phone Number [facility] [address] [place] [address] [facility] [address] [place] [phone] * (ABNORMAL) Lipid Panel, Standard (01/05/2023 10:29 AM EDT) Cholesterol, Total 187 <200 mg/dL [facility] [place] [facility] HDL Cholesterol 33(L) > OR = 50 mg/dL [facility] [place] [facility] Triglycerides 171(H) <150 mg/dL [facility] [place] [facility] LDL Cholesterol 125(H) mg/dL (calc) [facility] [place] [facility] Comment: Reference range: <100 Desirable range <100 mg/dL for primary prevention; <70 mg/dL for patients with CHD or diabetic patients with > or = 2 CHD risk factors. LDL-C is now calculated using the Dee calculation, which is a validated novel method providing better accuracy than the Friedewald equation in the estimation of LDL-C. Adam MORRISON et al. ACE. 2013;310(19): 1812-5448 (http://education.CoinEx.pw/faq/HXD164) Chol/HDLC Ratio 5.7(H) <5.0 (calc) [facility] [place] [facility] Non-HDL Cholesterol 154(H) <130 mg/dL (calc) [facility] Comment: For patients with diabetes plus 1 major ASCVD risk factor, treating to a non-HDL-C goal of <100 mg/dL (LDL-C of <70 mg/dL) is considered a therapeutic option. 01/05/2023 10:2 9 AM EDT 01/05/2023 10:29 AM EDT Narrative [facility] - 01/05/2023 11:47 PM EDT FASTING:NO FASTING: NO us Yosi Dhillon MD LAB BLOOD ORDERABLES Fin al Result [facility] [address], [place] [address] [facility] [place] [facility] [address] [place] [address] * HIV-1 RNA, Quantitative, Real-Time PCR (01/05/2023 10:27 AM EDT) [facility] HIV 1 RNA, QN PCR NOT DETECTED NOT DETECTED copies/mL [facility] [place] [facility] HIV 1 RNA, QN PCR NOT DETECTED NOT DETECTED Log copies/mL [facility] [place] [facility] Comment: This test was performed using Real-Time Polymerase Chain Reaction. Reportable Range: 20 copies/mL to 10,000,000 copies/mL (1.30 log copies/mL to 7.00 log copies/mL). Blood Venous blood specimen / Unknown 01/05/2023 10:27 AM EDT 01/05/2023 10:28 AM EDT Narrative [facility] - 01/11/2023 11:04 PM EDT FASTING:NO FASTING: NO us Nay Westbrook MD LAB BLOOD ORDERABLES Final Res ult [facility] [address], [place] [address] [facility] [address] [place] [phone] from Last 3 Months or Most Recently Relevant to Health Maintenance Insurance [facility] C3 DENTAL-[facility] MEDICAID STAND ADULT Care Teams Plant Worker Relationship Specialty Start Date End Date Yosi Dhillon MD [address] [place] [id number] PCP - General Family Medicine 03/10/17
--- OUTSIDE RECORDS SUMMARY | 2025-06-03 15:46 | XMS_ITS | Encounter Summary ---
Author Organization [employer] Address [address] [facility] [address] [place] [address] Care Team Providers Care Oven Roaster Name Role Phone Raysa Mccollum MD Primary Care Provider + Reason for Visit * Reason Onset Date Comments pain medication 07/10/2024 Encounter Details Date Type Department Care Team (Late st Contact Info) Description 07/10/2024 Telephone [facility] ADULT DENTAL [address] [place], [place] [phone] George Arzola DDS [address] [place], [place] [phone] pain medication Social History Tobacco Use Types [...] EST Office Visit [facility] OPTOMETRY [address] [place] [address] Raul, Mercedes, OD [address] [place] [address] 08/05/2025 10:30 AM EST Office Visit [facility] MEDICINE [address] [place] [address] Raysa Mccollum MD [address] [place] [address] documented as of this encounter Visit Diagnoses Not on filedocumented in this encounter Additional Health Concerns Assessment Noted Time PHQ-9 Depression Total Score: 1 09/15/19 24 10:37 AM EST documented as of this encounter Care Teams Oven Roaster Relationship Specialty Start Date End Date Raysa Mccollum MD [address] [place] [address] PCP - General Family Medicine 03/10/17 documented as of this encounter
--- OUTSIDE RECORDS SUMMARY | 2025-06-03 15:46 | XMS_ITS | Encounter Summary ---
Author Organization [employer] Address [address] [facility] [address] [place] [address] Care Team Providers Care Loan Supervisor Name Role Phone Raysa Mccollum MD Primary Care Provider + Reason for Visit * Reason Comments Med Refill Encounter Details Date Type Department Care Team ([facility] st Contact Info) Description 07/26/2024 Refill [facility] MEDICINE [address] [place], [place] [phone] Raysa Mccollum MD [address] [place], [place] [phone] Dermatitis Social History Tobacco Use Types Packs/Day [...] Description 07/04/2025 1:00 PM EST Office Visit [facility] OPTOMETRY [address] [place] [address] Raul, Mercedes, OD [address] [place] [address] 08/05/2025 10:30 AM EST Office Visit [facility] MEDICINE [address] [place] [address] Raysa Mccollum MD [address] [place] [address] documented as of this encounter Visit Diagnoses Diagnosis Dermatitis Contact dermatitis and other eczema, due to unspecified cause documented in this encounter Additional Health Concerns Assessment Noted Time PHQ-9 Depression Total Score: 1 09/15/19 24 10:37 AM EST documented as of this encounter Care Teams Loan Supervisor Relationship Specialty Start Date End Date Raysa Mccollum MD [address] [place] [address] PCP - General Family Medicine 03/10/17 documented as of this encounter
[2025-06-03 16:45] LABS: Anion Gap 11 (12-20); Blood Urea Nitrogen 11 mg/dL (9-16); Calcium 9.4 mg/dL (8.4-10.2); Carbon Dioxide 28 mmol/L (22-29); Chloride 105 mmol/L (96-108); Cholesterol 200 mg/dL (<200); Estimated Glomerular Filt Rate > 60; HDL Cholesterol 38 mg/dL (>40); Potassium 4.3 mmol/L (3.3-5.1); Sodium 140 mmol/L (135-145); Triglycerides 289 mg/dL (<150)
[2025-06-03 17:38] LABS: Microalbum/Creatinine Ratio Ur 39.8 ug/mg cr (<30)
[2025-06-03 18:43] LABS: Reflex LDLD? No
== END 2025-06-03 13:37 | disposition home or self-care (01) ==
LOC: HO.HHCL 13:36
PROVIDERS: PCP Internal Medicine; Visit Provider Internal Medicine
DX: I10 Essential (primary) hypertension (principal); E11.9 Type 2 diabetes mellitus without complications; E66.811 Obesity, class 1; Z68.33 Body mass index [BMI] 33.0-33.9, adult
CPT/HCPCS: 36415; 80048; 80061; 82043; 82306; 82570

== ENCOUNTER 2025-06-03 16:28 | Outpatient (REF) | payer MEDICAID, SELFPAY | END 2025-06-03 16:29 | disposition home or self-care (01) | LOC: HO.HHCLNP 16:28 | PROVIDERS: Visit Provider Internal Medicine | DX: R10.13 Epigastric pain (principal) | CPT/HCPCS: 36415; 80048; 80061; 82043; 82306; 82570; 87338 ==